=== PATIENT | male | born 1985 | race Caucasian/White ===

== ENCOUNTER 2018-01-09 23:41 | Emergency (ER) | payer OTHER, SELFPAY ==
[2018-01-09 23:58] VITALS: BP 138/78; PULSE 84; RESP 20; TEMP 37.4; O2SAT 97
--- NOTE | 2018-01-10 00:31 | DI.RAD.S_ITS ---
PROCEDURE: XR CHEST 2V INDICATIONS: cough/shortness of breath/fatigue TECHNIQUE: 2 views of the chest were acquired. COMPARISON: None. FINDINGS: Surgical changes and devices: None. Lungs and pleura: No pleural effusions or pneumothorax. No acute consolidation. There are mild bilateral scattered and retrocardiac groundglass opacities Mediastinum: Mediastinal contours are normal. Heart size is normal. Bones and chest wall: No suspicious bony abnormalities. Soft tissues appear unremarkable. IMPRESSION: No acute consolidation. Bilateral scattered mild groundglass opacities raising the possibility of low-grade atelectasis/aspiration, mild viral pneumonia, versus early pulmonary edema; recommend clinical correlation. Dictated by: Kashif Dickson M.D. on 01/10/2018 at 7:54 Approved by: Kashif Dickson M.D. on 01/10/2018 at 7:56
--- NOTE | 2018-01-10 01:38 | ED.SOB ---
HPI - SOB/Dyspnea General Chief Complaint: Shortness of Breath/Dyspnea Stated Complaint: THINKS FLU, COUGHING HEAD PRESSURE, DRY HEAVES Source: patient Mode of arrival: ambulatory Limitations: no limitations History of Present Illness Patient presents to the emergency department this evening with a chief complaint of cough for the past few days that feels unrelenting. He denies any runny nose but complains of bit of a sore throat. He has had no fever or chills. He does admit to some dry heaves Related Data Previous Rx's Medication Instructions Recorded doxycycline monohydrate 100 mg PO BID 10 Days #20 cap 01/10/18 ondansetron [Zofran ODT] 4 mg PO Q6H PRN #14 tab 01/10/18 Allergies Allergy/AdvReac Type Severity Reaction Status Date / Time shellfish derived Allergy Verified 01/10/18 00:01 Review of Systems Review of Systems All systems reviewed & are unremarkable except as noted in HPI and below Constitutional Denies chills, Denies fever(s), Denies lethargy and Denies weakness Eyes Denies change in vision, Denies eye discharge, Denies irritation and Denies loss of vision ENT Ears, Nose, Mouth, and Throat: Denies change in voice, Denies neck pain and Denies sore throat Cardiovascular Denies chest pain, Denies irregular heart rhythm, Denies lightheadedness, Denies palpitations, Denies dyspnea, Denies dyspnea on exertion and Denies orthopnea Respiratory Reports cough, Denies dyspnea, Denies dyspnea on exertion and Denies wheezing Gastrointestinal Gastrointestinal: Denies abdominal pain, Denies change in bowel habits, Denies diarrhea, Reports nausea and Denies vomiting Genitourinary Denies hematuria, Denies flank pain, Denies urinary incontinence and Denies urinary urgency Musculoskeletal Denies neck pain Integumentary/Breasts Denies pruritus, Denies erythema, Denies rash and Denies wounds Neurologic Denies confusion, Denies loss of vision and Denies weakness Psychiatric Denies anxiety, Denies confusion, Denies depression, Denies homicidal ideation and Denies suicidal ideation Endocrine Denies palpitations Hematologic/Lymphatic Denies easy bruising Allergic/Immunologic Denies wheezing Exam Initial Vital Signs Initial Vital Signs: Vital Signs Temperature 99.4 F 01/09/18 23:58 Pulse Rate 84 01/09/18 23:58 Respiratory Rate 20 01/09/18 23:58 Blood Pressure 138/78 H 01/09/18 23:58 Pulse Oximetry 97 01/09/18 23:58 Const General: cooperative and well developed Nutritional Appearance: well nourished Orientation: alert, awake, oriented x3 and not confused [facility] Head: normocephalic and atraumatic Ears: external ears normal and TM's normal bilaterally Nose: external nose normal and No nasal discharge Face and sinus: sinuses nontender, face symmetric, no sinus tenderness and No dry mucous membranes Mouth: oral mucosae normal and moist mucous membranes Teeth and gingiva: dentition normal Throat: tonsils normal and uvula midline Eyes General: appearance normal, both eyes and all related structures Eyelids: eyelids normal Conjunctivae: conjunctivae normal Sclera: sclerae normal Pupils: PERRL EOM: EOM intact bilaterally Neck Neck: normal visual inspection, trachea midline, No lymphadenopathy, No midline deformity and No JVD Lymphatic: No lymphedema Chest Chest: normal inspection of the chest Resp Effort & Inspection: normal respiratory effort, able to speak in complete sentences, no respiratory distress and no use of accessory muscles Auscultation: clear to auscultation bilaterally, no rales, no rhonchi and no wheezes Cardio Rate: regular rate Rhythm: regular rhythm Heart Sounds: no click, no gallops, no murmurs and no rubs Pulses: normal peripheral pulses GI Inspection: non-distended Palpation: soft, no hepatosplenomegaly, No guarding, No pulsatile mass and No tender Auscultation: normal bowel sounds Back/Spine/Pelvis Back: No CVA tenderness Cervical Spine: cervical ROM normal and No pain with cervical ROM Thoracic/Lumbar Spine: thoracic and lumbar spine normal to inspection Skin General: no rashes or lesions noted, No jaundice and No petechiae Neuro General: alert, oriented x3, gait normal and no focal motor deficits Speech: speech normal Extrem General: full ROM, no clubbing, cyanosis or edema, no pedal edema and no calf tenderness Psych Appearance: well kempt Mental Status: mental status grossly normal Attitude: cooperative Thought Content: normal and suicidality Judgment: judgment good Course Orders Ordered: ED Orders 01/10/18 00:31 Chest [XR chest 2V] Stat Discontinued Medications Doxycycline Hyclate (Vibramycin) 100 mg PO NOW ONE Stop: 01/10/18 01:27 Last Admin: 01/10/18 01:39 Dose: 100 mg Ondansetron HCl (Zofran Odt Prepack) 1 bottle MISC SEEINSTR ONE Stop: 01/10/18 01:27 Last Admin: 01/10/18 01:39 Dose: 1 bottle Vital Signs - 8 hr 01/09/18 23:58 01/10/18 01:56 Temperature 99.4 F 99.7 F H Pulse Rate 84 71 Respiratory Rate 20 18 Blood Pressure 138/78 H 120/48 L Pulse Oximetry 97 98 MDM - SOB/Dyspnea Differential Diagnosis Likely acute exacerbation of chronic obstructive airways disease, congestive heart failure, community acquired pneumonia, asthma with exacerbation and pulmonary embolism Imaging Data Chest x-ray: Attestation: I personally reviewed and interpreted this imaging study as follows: Radiologist's impression: No acute process Discharge Plan Departure Patient Disposition: Home, Self-Care Clinical Impression: Atypical pneumonia, Vomiting Discharge Date/Time: 01/10/18 01:57 Interventions: ED Discharge Assessment Last Done: 01/10/18 01:56 Instructions: DI for Atypical Pneumonia Activity Restrictions/Additional Instructions: There is no evidence of an emergent or life threatening illness at this time, but follow up with your doctor in 1-2 days is recommended nonetheless to continue to rule out serious underlying causes of your symptoms. Please call the office for an appointment. Please return to the Emergency Department for any worsening or persistent symptoms. Please take medications as directed. Prescriptions: New doxycycline monohydrate 100 mg capsule 100 mg PO BID 10 Days Qty: 20 RF: 0 ondansetron [Zofran ODT] 4 mg tablet,disintegrating 4 mg PO Q6H PRN (Reason: nausea and vomiting) Qty: 14 RF: 0 Referrals: Angela Mojica MD [Primary Care Provider] -
[2018-01-10] MEDS: ONDANSETRON 4 MG ODT PREPACK 1 BOTTLE MISC (01:39)
[2018-01-10] MEDS: DOXYCYCLINE HYCLATE 100 MG TABLET PO (01:39)
[2018-01-10 01:56] VITALS: BP 120/48; PULSE 71; RESP 18; TEMP 37.6; O2SAT 98
== END 2018-01-10 01:57 | disposition home or self-care (01) ==
PROVIDERS: Emergency Provider Emergency Medicine; PCP Family Medicine
DX: J18.9 Pneumonia, unspecified organism (principal); R11.10 Vomiting, unspecified
CPT/HCPCS: 71046; 99282; 99283

== ENCOUNTER 2019-04-30 18:10 | Emergency (ER) | payer OTHER, SELFPAY ==
[2019-04-30 18:15] VITALS: BP 154/102; PULSE 93; RESP 18; TEMP 37.1; O2SAT 97; BMI 25.7
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
[2019-04-30 20:10] LABS: HEMOLYSIS < 15 (0-50); Sodium 140 mmol/L (137-145)
[2019-04-30 20:12] LABS: Alanine Aminotransferase 19 IU/L (21-72); Albumin 5.2 g/dL (3.5-5.0); Albumin Globulin Ratio 1.6 (1.0-2.8); Alkaline Phosphatase 54 U/L (38-126); Aspartate Aminotransferase 23 IU/L (17-59); Bilirubin Total 1.1 mg/dL (0.2-1.3); Blood Urea Nitrogen 16 mg/dL (9-20); Calcium 9.9 mg/dL (8.4-10.2); Carbon Dioxide 23 mmol/L (22-32); Chloride 102 mmol/L (98-107); Estimated Glomerular Filt Rate > 60.0 mL/min (>60); Ethanol (ETOH) < 10 mg/dL; Globulin 3.2 g/dL (1.7-4.1); Glucose 90 mg/dL (70-100); Total Protein 8.4 g/dL (6.3-8.2)
[2019-04-30 20:13] LABS: Add Manual Diff / Slide Review NO; Basophils Absolute Auto 0 /uL (0-100); Basophils Percent Auto 0.4 % (0-2); Eosinophils Absolute Auto 0 /uL (0-450); Eosinophils Percent Auto 0.2 % (2-4); Hematocrit 43.7 % (41-53); Hemoglobin 15.1 g/dL (13.5-17.5); Lymphocytes Absolute Auto 2400 /uL (1100-4500); Lymphocytes Percent Auto 20.2 % (25-40); Mean Corpuscular HGB Conc 34.7 % (30-36); Mean Corpuscular Hemoglobin 29.4 PG (26-34); Mean Corpuscular Volume 84.8 fL (80-100); Monocytes Absolute Auto 700 /uL (0-900); Neutrophils Absolute Auto 8800 /uL (1500-7000); Neutrophils Percent Auto 73.2 % (50-75); Platelet Count 250 X10^3/uL (150-400); Red Blood Cell Count 5.15 X10^6/uL (4.5-5.9); Red Cell Distribution Width 13.3 % (11.6-14.8)
--- NOTE | 2019-04-30 20:14 | PC.NURSE ---
Pt given urinal and asked for a urine sample. Pt states he does not feel safe at home but assures me that he will not hurt himself or anybody else while he is in the ED. Pt calm and cooperative at this time.
[2019-04-30 20:32] LABS: Urine Amphetamines Negative (Negative); Urine Barbiturates Negative (Negative); Urine Benzodiazepines Negative (Negative); Urine Cocaine Negative (Negative); Urine MDMA Negative (Negative); Urine Methadone Negative (Negative); Urine Methamphetamines Negative (Negative); Urine Morphine/Opi cutoff 2000 Negative (Negative); Urine Oxycodone Negative (Negative); Urine Phencyclidine Negative (Negative); Urine Tetrahydrocannabinol Positive (Negative); Urine Tricyclic Antidepressant Negative (Negative)
[2019-04-30 20:43] LABS: Thyroid Stimulating Hormone 1.32 uIU/mL (0.47-4.68)
[2019-04-30 20:49] LABS: Bacteria Urine None Seen; RBC Urine 0-1/HPF (0-5/HPF); WBC Urine 0-1/HPF (0-5/HPF)
[2019-04-30 20:50] LABS: Culture Indicated Urine Cult Not Indicated
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
--- NOTE | 2019-04-30 22:43 | PC.NURSE ---
Pt lying down, wants to sleep. Lights dimmed for comfort.
--- NOTE | 2019-05-01 01:45 | PC.NURSE ---
Pt sitting on stretcher in room speaking with Dr. Blakely. Pt calm and cooperative.
--- NOTE | 2019-05-01 02:37 | PC.NURSE ---
Pt given coffee requested and offered snacks, pt given crackers, cheese, pudding and yogurt.
--- NOTE | 2019-05-01 03:41 | ED_ITS ---
HPI - Psych <Jesenia Blakely MD - Last Filed: 05/03/19 19:14> General Chief Complaint: Psychiatric Symptoms Stated Complaint: SUICIDAL Time Seen by Provider: 04/30/19 18:52 Source: patient Mode of arrival: ambulatory Limitations: no limitations History of Present Illness HPI Narrative: Patient comes emergency department complaining of depression, anxiety, and suicidal ideation. Patient states that he feels as though his life is just falling apart over the last several years, and he no longer has any social supports except his mother. 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 Patient states that he is scared to commit suicide, otherwise he would do it. He states that he has held a gun to his head before, and that he does have a safe with guns in it at home. Patient is not currently on any antidepressants or anxiolytics. He states that he has considered getting a fresh start, but does not have any money to do so. He denies any physical complaints. No other complaints at this time. Related Data Home Medications Medication Instructions Recorded Confirmed No Known Home Medications 05/01/19 05/01/19 Allergies Allergy/AdvReac Type Severity Reaction Status Date / Time shellfish derived Allergy Verified 01/10/18 00:01 Review of Systems <Jesenia Blakely MD - Last Filed: 05/03/19 19:14> Review of Systems ROS Unobtainable: All systems reviewed & are unremarkable except as noted in HPI and below Constitutional Constitutional: Denies chills, Denies fatigue, Denies fever(s), Denies frequent falls, Denies lethargy and Denies weakness Eyes Eyes: Denies change in vision, Denies eye discharge, Denies irritation and Denies loss of vision ENT Ears, Nose, Mouth, and Throat: Denies change in voice, Denies dizziness, Denies neck pain, Denies sore throat and Denies throat swelling Cardiovascular Cardiovascular: Denies chest pain, Denies irregular heart rhythm, Denies lightheadedness, Denies palpitations, Denies dyspnea, Denies dyspnea on exertion and Denies orthopnea Respiratory Respiratory: Denies cough, Denies dyspnea, Denies dyspnea on exertion and Denies wheezing Gastrointestinal Gastrointestinal: Denies abdominal pain, Denies change in bowel habits, Denies diarrhea, Denies nausea and Denies vomiting Genitourinary Genitourinary: Denies hematuria, Denies flank pain, Denies urinary incontinence and Denies urinary urgency Musculoskeletal Musculoskeletal: Denies back pain, Denies muscle weakness, Denies neck pain, Denies numbness and Denies tingling Integumentary/Breasts Skin/Breast: Denies pruritus, Denies erythema, Denies rash and Denies wounds Neurologic Neurologic: Denies behavioral changes, Denies confusion, Denies dizziness, Denies frequent falls, Denies loss of vision, Denies numbness, Denies tingling and Denies weakness Psychiatric Psychiatric: Reports anxiety, Denies behavioral changes, Denies confusion, Reports depression, Denies homicidal ideation and Reports suicidal ideation Endocrine Endocrine: Denies fatigue, Denies flushing and Denies palpitations Hematologic/Lymphatic Hematologic/Lymphatic: Denies easy bruising Allergic/Immunologic Allergic/Immunologic: Denies urticaria, Denies throat swelling and Denies wheezing PFSH <Jesenia Blakely MD - Last Filed: 05/03/19 19:14> Medical History Depression (Acute) Suicidal ideation (Acute) Surgical History No pertinent past surgical history (Acute) Social History Smoking Status: Former smoker alcohol intake: former substance use type: marijuana Exam <Jesenia Blakely MD - Last Filed: 05/03/19 19:14> Initial Vital Signs Initial Vital Signs: Vital Signs Temperature 98.7 F 04/30/19 18:15 Pulse Rate 93 H 04/30/19 18:15 Respiratory Rate 18 04/30/19 18:15 Blood Pressure 154/102 H 04/30/19 18:15 Pulse Oximetry 97 04/30/19 18:15 Const General: cooperative and well developed Nutritional Appearance: well nourished Orientation: alert, awake, oriented x3 and not confused [facility] Head: normocephalic and atraumatic Nose: external nose normal and No nasal discharge Face and sinus: face symmetric and No dry mucous membranes Mouth: oral mucosae normal and moist mucous membranes Teeth and gingiva: dentition normal Eyes General: appearance normal, both eyes and all related structures Eyelids: eyelids normal Conjunctivae: conjunctivae normal Sclera: sclerae normal Pupils: PERRL EOM: EOM intact bilaterally Neck Neck: normal visual inspection, trachea midline, No lymphadenopathy, No midline deformity and No JVD Lymphatic: No lymphedema Chest Chest: normal inspection of the chest Resp Effort & Inspection: normal respiratory effort, able to speak in complete sentences, no respiratory distress and no use of accessory muscles Cardio Pulses: normal peripheral pulses Back/Spine/Pelvis Back: normal to inspection Skin General: no rashes or lesions noted, No jaundice and No petechiae Neuro General: alert, oriented x3, gait normal and no focal motor deficits Speech: speech normal Extrem General: full ROM, no clubbing, cyanosis or edema, no pedal edema and no calf tenderness Psych Appearance: well kempt Mental Status: mental status grossly normal Attitude: cooperative Thought Content: normal and suicidality Judgment: judgment good <Yesi Sutton DO - Last Filed: 05/01/19 18:55> Initial Vital Signs Initial Vital Signs: Vital Signs Temperature 98.7 F 04/30/19 18:15 Pulse Rate 93 H 04/30/19 18:15 Respiratory Rate 18 04/30/19 18:15 Blood Pressure 154/102 H 04/30/19 18:15 Pulse Oximetry 97 04/30/19 18:15 Course <Jesenia Blakely MD - Last Filed: 05/03/19 19:14> Course Course Narrative: Patient was worked up with clearance labs in the emergency department. He did not wish to go back home, and was afraid he might take his life, so I did keep him here to await social work evaluation. Patient is signed out to Dr. Sutton at change of shift, pending social work evaluation and disposition. Orders Ordered: ED Orders 05/01/19 06:08 Consult to Senior Quality Control Inspector Stat Vital Signs Vital signs: Vital Signs - 8 hr 05/01/19 11:36 05/01/19 14:48 Temperature 99.0 F Pulse Rate 70 58 L Respiratory Rate 16 17 Blood Pressure [Right Arm] 124/66 128/83 Pulse Oximetry 99 100 <Yesi Sutton DO - Last Filed: 05/01/19 18:55> Orders Ordered: ED Orders 05/01/19 06:08 Consult to Senior Quality Control Inspector Stat Vital Signs Vital signs: Vital Signs - 8 hr 05/01/19 11:36 05/01/19 14:48 Temperature 99.0 F Pulse Rate 70 58 L Respiratory Rate 16 17 Blood Pressure [Right Arm] 124/66 128/83 Pulse Oximetry 99 100 [facility] - Psych <Jesenia Blakely MD - Last Filed: 05/03/19 19:14> Lab Data Result diagrams: 04/30/19 19:36 04/30/19 19:36 Labs: Lab Results 04/30/19 04/30/19 04/30/19 Range/Units 19:36 19:36 19:36 WBC 12.0 H (4.5-11.0) X10^3/uL RBC 5.15 (4.5-5.9) X10^6/uL Hgb 15.1 (13.5-17.5) g/dL Hct 43.7 (41-53) % MCV 84.8 (80-100) fL MCH 29.4 (26-34) PG MCHC 34.7 (30-36) % RDW 13.3 (11.6-14.8) % Plt Count 250 (150-400) X10^3/uL Neut % (Auto) 73.2 (50-75) % Lymph % (Auto) 20.2 L (25-40) % [place] % (Auto) 6.0 (3-14) % Eos % (Auto) 0.2 L (2-4) % Baso % (Auto) 0.4 (0-2) % Neut # (Auto) 8800 H (3236-6027) /uL Lymph # (Auto) 2400 (5181-4277) /uL [place] # (Auto) 700 (0-900) /uL Eos # (Auto) 0 (0-450) /uL Baso # (Auto) 0 (0-100) /uL Sodium 140 (137-145) mmol/L Potassium 4.0 (3.4-5.1) mmol/L Chloride 102 (98-107) mmol/L Carbon Dioxide 23 (22-32) mmol/L BUN 16 (9-20) mg/dL Creatinine 1.00 (0.66-1.25) mg/dL Estimated GFR > 60.0 (>60) mL/min BUN/Creatinine Ratio 16.0 (6-22) Glucose 90 (70-100) mg/dL Calcium 9.9 (8.4-10.2) mg/dL Total Bilirubin 1.1 (0.2-1.3) mg/dL AST 23 (17-59) IU/L ALT 19 L (21-72) IU/L Alkaline Phosphatase 54 (38-126) U/L Total Protein 8.4 H (6.3-8.2) g/dL Albumin 5.2 H (3.5-5.0) g/dL Globulin 3.2 (1.7-4.1) g/dL Albumin/Globulin Ratio 1.6 (1.0-2.8) TSH 1.32 (0.47-4.68) uIU/mL Urine RBC (0-5/HPF) Urine WBC (0-5/HPF) Urine Bacteria (None) Ur Culture Indicated? Urine Opiates Screen (Negative) Ur Oxycodone Screen (Negative) Urine Methadone Screen (Negative) Ur Barbiturates Screen (Negative) U Tricyclic Antidepress (Negative) Ur Phencyclidine Scrn (Negative) Ur Amphetamines Screen (Negative) U Methamphetamines Scrn (Negative) Ur MDMA Scrn (Ecstasy) (Negative) U Benzodiazepines Scrn (Negative) Urine Cocaine Screen (Negative) U Marijuana (THC) Screen (Negative) Ethyl Alcohol < 10 ( - 10) mg/dL 04/30/19 04/30/19 Range/Units 20:24 20:25 WBC (4.5-11.0) X10^3/uL RBC (4.5-5.9) X10^6/uL Hgb (13.5-17.5) g/dL Hct (41-53) % MCV (80-100) fL MCH (26-34) PG MCHC (30-36) % RDW (11.6-14.8) % Plt Count (150-400) X10^3/uL Neut % (Auto) (50-75) % Lymph % (Auto) (25-40) % [place] % (Auto) (3-14) % Eos % (Auto) (2-4) % Baso % (Auto) (0-2) % Neut # (Auto) (8629-9912) /uL Lymph # (Auto) (3948-5371) /uL [place] # (Auto) (0-900) /uL Eos # (Auto) (0-450) /uL Baso # (Auto) (0-100) /uL Sodium (137-145) mmol/L Potassium (3.4-5.1) mmol/L Chloride (98-107) mmol/L Carbon Dioxide (22-32) mmol/L BUN (9-20) mg/dL Creatinine (0.66-1.25) mg/dL Estimated GFR (>60) mL/min BUN/Creatinine Ratio (6-22) Glucose (70-100) mg/dL Calcium (8.4-10.2) mg/dL Total Bilirubin (0.2-1.3) mg/dL AST (17-59) IU/L ALT (21-72) IU/L Alkaline Phosphatase (38-126) U/L Total Protein (6.3-8.2) g/dL Albumin (3.5-5.0) g/dL Globulin (1.7-4.1) g/dL Albumin/Globulin Ratio (1.0-2.8) TSH (0.47-4.68) uIU/mL Urine RBC 0-1/hpf (0-5/HPF) Urine WBC 0-1/hpf (0-5/HPF) Urine Bacteria None seen (None) Ur Culture Indicated? Cult not indicated Urine Opiates Screen Negative (Negative) Ur Oxycodone Screen Negative (Negative) Urine Methadone Screen Negative (Negative) Ur Barbiturates Screen Negative (Negative) U Tricyclic Antidepress Negative (Negative) Ur Phencyclidine Scrn Negative (Negative) Ur Amphetamines Screen Negative (Negative) U Methamphetamines Scrn Negative (Negative) Ur MDMA Scrn (Ecstasy) Negative (Negative) U Benzodiazepines Scrn Negative (Negative) Urine Cocaine Screen Negative (Negative) U Marijuana (THC) Screen Positive H (Negative) Ethyl Alcohol ( - 10) mg/dL Urine Dip Bedside Urine Glucose Negative Bedside Urine Bilirubin - Negative Bedside Urine Ketone +++ 80 Urine Specific [place] 1.020 Bedside Urine Occult Blood - Negative Bedside Urine pH 6.0 Bedside Urine Protein +/- 15 Bedside Urine Urobilinogen +/- 1mg Bedside Urine Nitrite - Negative Bedside Urine Leukocytes - Negative Esterase <Yesi Sutton DO - Last Filed: 05/01/19 18:55> Lab Data Attestation: I reviewed the patient's lab results. Labs: Lab Results 04/30/19 04/30/19 04/30/19 Range/Units 19:36 19:36 19:36 WBC 12.0 H (4.5-11.0) X10^3/uL RBC 5.15 (4.5-5.9) X10^6/uL Hgb 15.1 (13.5-17.5) g/dL Hct 43.7 (41-53) % MCV 84.8 (80-100) fL MCH 29.4 (26-34) PG MCHC 34.7 (30-36) % RDW 13.3 (11.6-14.8) % Plt Count 250 (150-400) X10^3/uL Neut % (Auto) 73.2 (50-75) % Lymph % (Auto) 20.2 L (25-40) % [place] % (Auto) 6.0 (3-14) % Eos % (Auto) 0.2 L (2-4) % Baso % (Auto) 0.4 (0-2) % Neut # (Auto) 8800 H (4870-2196) /uL Lymph # (Auto) 2400 (9840-4542) /uL [place] # (Auto) 700 (0-900) /uL Eos # (Auto) 0 (0-450) /uL Baso # (Auto) 0 (0-100) /uL Sodium 140 (137-145) mmol/L Potassium 4.0 (3.4-5.1) mmol/L Chloride 102 (98-107) mmol/L Carbon Dioxide 23 (22-32) mmol/L BUN 16 (9-20) mg/dL Creatinine 1.00 (0.66-1.25) mg/dL Estimated GFR > 60.0 (>60) mL/min BUN/Creatinine Ratio 16.0 (6-22) Glucose 90 (70-100) mg/dL Calcium 9.9 (8.4-10.2) mg/dL Total Bilirubin 1.1 (0.2-1.3) mg/dL AST 23 (17-59) IU/L ALT 19 L (21-72) IU/L Alkaline Phosphatase 54 (38-126) U/L Total Protein 8.4 H (6.3-8.2) g/dL Albumin 5.2 H (3.5-5.0) g/dL Globulin 3.2 (1.7-4.1) g/dL Albumin/Globulin Ratio 1.6 (1.0-2.8) TSH 1.32 (0.47-4.68) uIU/mL Urine RBC (0-5/HPF) Urine WBC (0-5/HPF) Urine Bacteria (None) Ur Culture Indicated? Urine Opiates Screen (Negative) Ur Oxycodone Screen (Negative) Urine Methadone Screen (Negative) Ur Barbiturates Screen (Negative) U Tricyclic Antidepress (Negative) Ur Phencyclidine Scrn (Negative) Ur Amphetamines Screen (Negative) U Methamphetamines Scrn (Negative) Ur MDMA Scrn (Ecstasy) (Negative) U Benzodiazepines Scrn (Negative) Urine Cocaine Screen (Negative) U Marijuana (THC) Screen (Negative) Ethyl Alcohol < 10 ( - 10) mg/dL 04/30/19 04/30/19 Range/Units 20:24 20:25 WBC (4.5-11.0) X10^3/uL RBC (4.5-5.9) X10^6/uL Hgb (13.5-17.5) g/dL Hct (41-53) % MCV (80-100) fL MCH (26-34) PG MCHC (30-36) % RDW (11.6-14.8) % Plt Count (150-400) X10^3/uL Neut % (Auto) (50-75) % Lymph % (Auto) (25-40) % [place] % (Auto) (3-14) % Eos % (Auto) (2-4) % Baso % (Auto) (0-2) % Neut # (Auto) (8193-7471) /uL Lymph # (Auto) (0229-6159) /uL [place] # (Auto) (0-900) /uL Eos # (Auto) (0-450) /uL Baso # (Auto) (0-100) /uL Sodium (137-145) mmol/L Potassium (3.4-5.1) mmol/L Chloride (98-107) mmol/L Carbon Dioxide (22-32) mmol/L BUN (9-20) mg/dL Creatinine (0.66-1.25) mg/dL Estimated GFR (>60) mL/min BUN/Creatinine Ratio (6-22) Glucose (70-100) mg/dL Calcium (8.4-10.2) mg/dL Total Bilirubin (0.2-1.3) mg/dL AST (17-59) IU/L ALT (21-72) IU/L Alkaline Phosphatase (38-126) U/L Total Protein (6.3-8.2) g/dL Albumin (3.5-5.0) g/dL Globulin (1.7-4.1) g/dL Albumin/Globulin Ratio (1.0-2.8) TSH (0.47-4.68) uIU/mL Urine RBC 0-1/hpf (0-5/HPF) Urine WBC 0-1/hpf (0-5/HPF) Urine Bacteria None seen (None) Ur Culture Indicated? Cult not indicated Urine Opiates Screen Negative (Negative) Ur Oxycodone Screen Negative (Negative) Urine Methadone Screen Negative (Negative) Ur Barbiturates Screen Negative (Negative) U Tricyclic Antidepress Negative (Negative) Ur Phencyclidine Scrn Negative (Negative) Ur Amphetamines Screen Negative (Negative) U Methamphetamines Scrn Negative (Negative) Ur MDMA Scrn (Ecstasy) Negative (Negative) U Benzodiazepines Scrn Negative (Negative) Urine Cocaine Screen Negative (Negative) U Marijuana (THC) Screen Positive H (Negative) Ethyl Alcohol ( - 10) mg/dL Urine Dip Bedside Urine Glucose Negative Bedside Urine Bilirubin - Negative Bedside Urine Ketone +++ 80 Urine Specific [place] 1.020 Bedside Urine Occult Blood - Negative Bedside Urine pH 6.0 Bedside Urine Protein +/- 15 Bedside Urine Urobilinogen +/- 1mg Bedside Urine Nitrite - Negative Bedside Urine Leukocytes - Negative Esterase MDM Narrative Medical decision making narrative: Patient signed out to myself by Dr. rosario, patient states that he does not feel quite as ?hysterical? as yesterday but that he still having significant suicidal thoughts and does not feel safe returning to home. He does have firearms in his home and he states that that would be his plan to kill himself. He states that he has always been sort of scared to actually do it but has put the gun to his head in the past. He does not have good social support at this time and is not speaking terms with his brother or close friends. He does have contact with his mother regularly but she always tells him ?that she does not want know what to do.? Patient is interested in voluntary placement at this time. He states that he has been at a facility that was for 's in the past and had some interest in returning to that location. He is comfortable to plan for discussion with social work and to continue looking for placement. [facility] accepting [facility]. Awaiting transportation. Discharge Plan Departure Patient Disposition: Xfer Psychiatric Hosp Clinical Impression: Suicidal ideation Discharge Date/Time: 05/01/19 15:24 Referrals: Angela Mojica MD [Primary Care Provider] -
[2019-05-01 07:06] VITALS: BP 124/73; PULSE 45; RESP 16; TEMP 36.3; O2SAT 97
--- NOTE | 2019-05-01 09:41 | PC.NURSE ---
Pt resting intermittently on the bed. Ambulating to bathroom. Given clean disposable scrubs and socks to wear. CM
--- NOTE | 2019-05-01 10:39 | PC.NURSE ---
Addendum entered by Eunice Roper CNA 05/01/19 10:45: Phone placed back into patient belonging bag at nurse's station. CM Addendum entered by Eunice Roper CNA 05/01/19 10:43: Patient's phone given to patient from patient belonging bag. HANSEL Original Note: Patient meeting with [facility]. HANSEL
[2019-05-01 11:36] VITALS: BP 124/66; PULSE 70; RESP 16; O2SAT 99
--- NOTE | 2019-05-01 11:40 | CM.SWNOTE ---
CUSTOMER DEVELOPMENT REPRESENTATIVE Note: Received request from ED staff to follow up with inpatient psychiatric placement for this 33yr old male. Met with patient this AM and he continues to request inpatient psychiatric placement for SI. Previous CUSTOMER DEVELOPMENT REPRESENTATIVE notes indicate that [facility] bed might be available today. CUSTOMER DEVELOPMENT REPRESENTATIVE placed call to Yord[facility] at [facility] ph# [phone] he requested clinical be faxed to [phone]. Information reviewed by [facility] and they will accept. Accepting MD is Dr. Marin. CUSTOMER DEVELOPMENT REPRESENTATIVE spoke with Dr. Marin and she confirms acceptance and requested to speak with patient via the telephone. Consent will be faxed to [facility] for patient to sign and will need to be faxed once signature obtained. Per Dr. Marin, [facility] will coordinate transport and call ED with fruit picker time. RN and MD updated. Patient continues to be aware and agreeable. Contact at [facility] is [facility] ph# [phone]. P: Inpatient psychiatric treatment at [facility]. JAVIER Heath
[2019-05-01 14:48] VITALS: BP 128/83; PULSE 58; RESP 17; TEMP 37.2; O2SAT 100
--- NOTE | 2019-05-01 14:48 | PC.NURSE ---
report called to BART Soria at [facility]
== END 2019-05-01 15:24 ==
PROVIDERS: Emergency Medicine; Nurse Practitioner; Emergency Provider Emergency Medicine; PCP Family Medicine
DX: R45.851 Suicidal ideations (principal)
CPT/HCPCS: 36415; 80053; 80305; 80320; 81003; 81015; 84443; 85025; 99285

== ENCOUNTER 2019-06-21 17:37 | Emergency (ER) | payer OTHER, SELFPAY ==
[2019-06-21 17:48] VITALS: BP 175/81; PULSE 75; RESP 20; TEMP 36.9; O2SAT 98; BMI 27.1
--- NOTE | 2019-06-21 18:14 | PC.NURSE ---
pt reports, at 430pm today, developed severe anxiety and panic attact, called the HI Hotline, cried and called a friend, calming down now, reports he has been with Mental Health treatment for one month, taking Venlafaxine and Hydroxyzine. Has [facility] appointment tomorrow at 10am. denies SI,HI, overdose, Alcohol or injuries. 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 admit chewing tobacco. at this time, with good eye contact, cooperative with care, urine requested verbal understanding.
--- NOTE | 2019-06-21 18:22 | ED_ITS ---
HPI - Anxiety General Chief Complaint: Anxiety Stated Complaint: MENTAL HEALTH ISSUES Time Seen by Provider: 06/21/19 18:21 Source: patient Mode of arrival: Ambulatory Limitations: no limitations History of Present Illness HPI narrative: 34-year-old male nonsmoker with history of anxiety, depression, possibly PST and former alcohol abuse presents with his grandfather for evaluation of what seems like a panic attack. Patient's was just involved in an extensive and intense [facility]. He states he has no suicidal or homicidal ideation and is largely improved by his arrival. He was helping his grandfather with some chores when he started feeling very worked up, he called the crisis line at the [facility] was instructed to present here. He has an appointment tomorrow with his provider. He states he has been taking his medications as directed and has not missed any doses. He states he has no significant stressors that he can link to today's event. MD complaint: anxiety Onset (ago): hour(s) Symptoms: dyspnea and palpitations Severity: moderate Quality: improving Place: home History of similar episodes: Yes Provoking factors: none known Relieving factors: nothing Exacerbating factors: nothing Associated symptoms: denies other symptoms Related Data Home Medications Medication Instructions Recorded Confirmed No Known Home Medications 05/01/19 05/01/19 Allergies Allergy/AdvReac Type Severity Reaction Status Date / Time shellfish derived Allergy Verified 06/21/19 17:48 Review of Systems Constitutional Constitutional: Denies chills, Denies fatigue, Denies fever(s), Denies frequent falls, Denies lethargy and Denies weakness Eyes Eyes: Denies change in vision, Denies eye discharge, Denies irritation and Denies loss of vision ENT Ears, Nose, Mouth, and Throat: Denies change in voice, Denies dizziness, Denies neck pain, Denies sore throat and Denies throat swelling Cardiovascular Cardiovascular: Denies chest pain, Denies irregular heart rhythm, Denies l ightheadedness, Denies palpitations, Denies dyspnea, Denies dyspnea on exertion and Denies orthopnea Respiratory Respiratory: Denies cough, Denies dyspnea, Denies dyspnea on exertion and Denies wheezing Gastrointestinal Gastrointestinal: Denies abdominal pain, Denies change in bowel habits, Denies diarrhea, Denies nausea and Denies vomiting Genitourinary Genitourinary: Denies hematuria, Denies flank pain, Denies urinary incontinence and Denies urinary urgency Musculoskeletal Musculoskeletal: Denies back pain, Denies muscle weakness, Denies neck pain, Denies numbness and Denies tingling Integumentary/Breasts Skin/Breast: Denies pruritus, Denies erythema, Denies rash and Denies wounds Neurologic Neurologic: Denies behavioral changes, Denies confusion, Denies dizziness, Denies frequent falls, Denies loss of vision, Denies numbness, Denies tingling and Denies weakness Psychiatric Psychiatric: Reports anxiety, Denies behavioral changes, Denies confusion, Denies depression, Denies homicidal ideation and Denies suicidal ideation Endocrine Endocrine: Denies fatigue, Denies flushing and Denies palpitations Hematologic/Lymphatic Hematologic/Lymphatic: Denies easy bruising Allergic/Immunologic Allergic/Immunologic: Denies urticaria, Denies throat swelling and Denies wheezing Patient History Medical History Depression (Acute) Suicidal ideation (Acute) Surgical History No pertinent past surgical history (Acute) Social History Smoking Status: Former smoker alcohol intake: former substance use type: marijuana alcohol intake frequency: other Substance Use Type: marijuana Exam Narrative Exam Narrative: GENERAL: [34] year old patient appears stated age. Well- nourished, well-developed patient, in mild distress. HEAD: Atraumatic. Normocephalic. EYES: Pupils equal round and reactive. Extraocular motions intact. No scleral icterus. No injection or drainage. ENT: Nose without bleeding, purulent drainage. Throat without erythema, tonsillar hypertrophy or exudate. Airway patent. NECK: Trachea midline. Non tender CARDIOVASCULAR: Regular rate and rhythm without murmurs, gallops, or rubs. RESPIRATORY: Clear to auscultation. Breath sounds equal bilaterally. No wheezes, rales, or rhonchi. GASTROINTESTINAL: Abdomen soft, non-tender, nondistended. EXTREMITIES: No edema or joint tenderness. BACK: Nontender without deformity or crepitance. No flank tenderness. NEURO: AOx3. SKIN: No rash or erythema of visible areas Initial Vital Signs Initial Vital Signs: Vital Signs Temperature 98.4 F 06/21/19 17:48 Pulse Rate 75 06/21/19 17:48 Respiratory Rate 20 06/21/19 17:48 Blood Pressure 175/81 H 06/21/19 17:48 Pulse Oximetry 98 06/21/19 17:48 Course Course Course Narrative: patient doing quite well by his arrival. No suicidal or homicidal ideation. He admittedly feels much better. He as follow up tomorrow. He feels quite comfortable going home and has a friend coming to be with him. He has another friend whom will come take him to his appointment tomorrow. He has good insight to his illness. There is no need for labs at this point in time. He is given 2 doses of Ativan to get him through the night in case he gets anxious again. He has no access too firearms and does not want to hurt himself. He understands his diagnosis and is in full agreement with the plan. He understands that he may return immediately for any recurrence of symptoms. He has had his questions answered to his apparent satisfaction Orders Ordered: ED Orders 06/21/19 18:35 Urine Drug Screen, Rapid Stat Discontinued Medications Lorazepam (Ativan) 0.5 mg PO NOW ONE Stop: 06/21/19 19:35 Last Admin: 06/21/19 19:38 Dose: 0.5 mg Documented by: CAMMY Lorazepam (Ativan) 0.5 mg PO NOW ONE Stop: 06/21/19 19:37 Last Admin: 06/21/19 20:03 Dose: 0.5 mg Documented by: CAMMY Vital Signs Vital signs: Vital Signs - 8 hr 06/21/19 20:17 Pulse Rate 86 Respiratory Rate 14 Blood Pressure 137/81 Pulse Oximetry 98 MDM - Anxiety Lab Data Labs: Lab Results 06/21/19 Range/Units 18:35 U Morph 300 ng/mL cutoff Negative (Negative) Ur Oxycodone Screen Negative (Negative) Urine Methadone Screen Negative (Negative) Ur Barbiturates Screen Negative (Negative) U Tricyclic Antidepress Negative (Negative) Ur Phencyclidine Scrn Negative (Negative) Ur Amphetamines Screen Negative (Negative) U Methamphetamines Scrn Negative (Negative) Ur MDMA Scrn (Ecstasy) Negative (Negative) U Benzodiazepines Scrn Negative (Negative) Urine Cocaine Screen Negative (Negative) U Marijuana (THC) Screen Negative (Negative) Urine Dip Bedside Urine Glucose Negative Bedside Urine Bilirubin - Negative Bedside Urine Ketone - Negative Urine Specific [place] 1.010 Bedside Urine Occult Blood - Negative Bedside Urine pH 6.0 Bedside Urine Protein - Negative Bedside Urine Urobilinogen - Negative Bedside Urine Nitrite - Negative Bedside Urine Leukocytes - Negative Esterase Discharge Plan Departure Patient Disposition: Home Clinical Impression: Anxiety, Panic disorder Discharge Date/Time: 06/21/19 20:17 Instructions: Anxiety and Panic Attacks (Alternative Therapy), DI for Anxiety -- Adult Activity Restrictions/Additional Instructions: *You have been diagnosed with [anxiety with panic disorder] *What to do: *Take medications as directed *Follow up with your psychologist tomorrow. If you feel yourself escalating please immediately call the crisis line at or return to the Emergency Department. *Return to ER if you should have any new, worsening or concerning symptoms Prescriptions: No Action No Known Home Medications RF: 0 Referrals: [facility] [Outside] Angela Mojica MD [Primary Care Provider] -
[2019-06-21 18:47] LABS: UR Morphine/Opiate cutoff 300 Negative (Negative); Ur Creatinine Abnormal (Normal); Ur Specific Gravity Normal (Normal); Urine Amphetamines Negative (Negative); Urine Barbiturates Negative (Negative); Urine Benzodiazepines Negative (Negative); Urine Cocaine Negative (Negative); Urine MDMA Negative (Negative); Urine Methadone Negative (Negative); Urine Methamphetamines Negative (Negative); Urine Oxycodone Negative (Negative); Urine Phencyclidine Negative (Negative); Urine Tetrahydrocannabinol Negative (Negative); Urine Tricyclic Antidepressant Negative (Negative); Urine pH Normal (Normal)
[2019-06-21] MEDS: LORazepam 0.5 MG TABLET PO ×2 (19:38→20:03)
[2019-06-21 20:17] VITALS: BP 137/81; PULSE 86; RESP 14; O2SAT 98
== END 2019-06-21 20:17 | disposition home or self-care (01) ==
PROVIDERS: Emergency Provider Emergency Medicine; PCP Family Medicine
DX: F41.9 Anxiety disorder, unspecified (principal); F41.0 Panic disorder [episodic paroxysmal anxiety]
CPT/HCPCS: 80305; 81003; 99283

== ENCOUNTER 2021-04-01 13:40 | Emergency (ER) | payer OTHER, SELFPAY ==
[2021-04-01 13:49] VITALS: BP 129/86; PULSE 74; RESP 18; TEMP 36.7; O2SAT 99
[2021-04-01 15:17] LABS: Add Manual Diff / Slide Review NO; Basophils Absolute Auto 0 /uL (0-100); Basophils Percent Auto 0.3 % (0-2); Eosinophils Absolute Auto 0 /uL (0-450); Eosinophils Percent Auto 0.2 % (2-4); Hematocrit 44.3 % (41-53); Hemoglobin 14.9 g/dL (13.5-17.5); Lymphocytes Absolute Auto 1600 /uL (1100-4500); Lymphocytes Percent Auto 17.4 % (25-40); Mean Corpuscular HGB Conc 33.6 % (30-36); Mean Corpuscular Hemoglobin 29.6 PG (26-34); Mean Corpuscular Volume 88.1 fL (80-100); Monocytes Absolute Auto 800 /uL (0-900); Monocytes Percent Auto 8.8 % (3-14); Neutrophils Absolute Auto 6900 /uL (1500-7000); Neutrophils Percent Auto 73.3 % (50-75); Platelet Count 237 X10^3/uL (150-400); Red Blood Cell Count 5.03 X10^6/uL (4.5-5.9); Red Cell Distribution Width 13.4 % (11.6-14.8); White Blood Cell Count 9.4 X10^3/uL (4.5-11.0)
[2021-04-01 15:31] LABS: BUN Creatinine Ratio 17.2 (6-22); Blood Urea Nitrogen 16 mg/dL (9-20); Calcium 9.8 mg/dL (8.4-10.2); Carbon Dioxide 28 mmol/L (22-32); Chloride 100 mmol/L (98-107); Estimated Glomerular Filt Rate > 60.0 mL/min (>60); Glucose 98 mg/dL (70-100); HEMOLYSIS < 15 (0-50); Potassium 4.3 mmol/L (3.4-5.1); Sodium 137 mmol/L (137-145)
--- NOTE | 2021-04-01 16:05 | CM.SWNOTE ---
PRINTED CIRCUIT BOARD PCB DRAFTSMAN Assessment PRINTED CIRCUIT BOARD PCB DRAFTSMAN - Airport Manager Assessment PRINTED CIRCUIT BOARD PCB DRAFTSMAN/Airport Manager Assessment Time Spent with Patient Start date 04/01/21 Visit Start Time 15:10 End date 04/01/21 Visit End Time 15:45 Total time Care Management spent on 35 patient visit-in minutes Mental Health Screening Include Onset, Duration, Intensity Presenting Problem Patient presents to ED via EMS after recent panic attack breakdown at work Precipitating Event(s) Patient's friend recently from a seizure and patient had a seizure a few days later. Patient endorses current health issues that he is following up with PCP about . Patient endorses that he was off of his MH medication temporarily due to a lapse in refills and he is not certain if they are working. Patient Strengths Patient shows insight and is connected with services and resources Current Behavioral Health Provider(s) Patient sees psychologist and Include Facility, Provider, Ph. # psychiatrist through the [facility] regularly. Patient could not idenitify names of providers. Psych. 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 Patient has hx of PTSD, depression and anxiety. Patient endorses rx of Venafaxine and Lorazapam Patient endorses daily THC use when he is not working. Family Hx of Behavioral Abuse None reported Psychiatric Hospitalizations (date(s)/ Patient was admitted to location) [facility] in [place] in 08/09/18-08/24/18 (left AMA) Patient was admitted to [facility] on 05/01/19 Psychosocial information & Support Patient is 35 y/o male who Systems resides in [place], [place]. Patient identifies friends and coworkers as supports. 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 [place] and student at [employer] [place] Legal Concerns Legal Matters - Outstanding Issues None reported Mental Status Orientation (Person/Place/Time) A/Ox4 Stated Mood dealing with heavy stuff Affect (Congruent with Mood?) Euthymic, full range, congruent with mood Thought Content - Specify/Describe Patient does not endorse Obsessions, Delusions, Hallucinations thought content Thought Processes (Jatjkja-Ollhjjap-Djfe coherent Lxorctzd-Zhuvotrk-Fghtsgclvt- Fgjggiwwsqeaef-Caabmmu-Bkfmrfegynhu- Thought Blocking) Speech (Wxgajv-Wfxj-Riadmpg-Rapid-Soft- normal Loud-Pressured) Motor (Ltdodi-Qssjqtrdp-Vqss-Other) normal Insight (Wbjm-Knds-Uxxn/Limited) good/fair Judgement (Elku-Nvcl-Bagd/Limited) good/fair Impulse Control (Adequate-Impaired) adequate Memory (Psdtcdckz-Kzwrvi-Qpfzev, intact Impaired-Intact) Concentration (Intact-Impaired) intact Attention (Intact-Impaired) intact Behavior (Appropriate-Inappropriate) appropriate Risk Assessment Suicidal Ideation (Plan) No Homicidal Ideation (Plan) No Comment Patient denies HI and SI. Intervention Intervention PRINTED CIRCUIT BOARD PCB DRAFTSMAN enters room to meet with patient. Patient endorses significant life stresses due to health concerns and the recent loss of his friend who of a seizure. Patient endorses that he has a difficult job and his work life and personal life blend together at times. Patient endorses that he has utilized services at the [facility] and he is very connected in MH services with psychologist and psychiatrist. Patient endorses [facility] and was encouraged to come to the ED. Patient endorses that he has an appt with his psychiatrist on 04/03/21. Patient endorses due to his boss and coworkers concern for him he will have the next few weeks off for self care and to tend to his MH and wellbeing. PRINTED CIRCUIT BOARD PCB DRAFTSMAN discusses inpatient hospitalization at the [facility] and patient endorses he is not interested in that at this time. PRINTED CIRCUIT BOARD PCB DRAFTSMAN safety plans with patient to utilize [facility] crisis line when needed, utilize friends and supports, attend MH appts and return to ED if MH symptoms increase. It is the opinion of this PRINTED CIRCUIT BOARD PCB DRAFTSMAN that patient is safe to d/c to home. PRINTED CIRCUIT BOARD PCB DRAFTSMAN reviews the above with ED provider Oh Orellana PA-C who indicates agreement and understanding. Plan RA Plan Patient to d/c to home when medically clear, and to f/u with psychiatrist on 04/03/21. Patient to receive ride to home from friend. JAVIER Sanabria
[2021-04-01 16:10] LABS: Thyroid Stimulating Hormone 1.02 uIU/mL (0.47-4.68)
[2021-04-01 16:57] VITALS: BP 138/79; PULSE 71; RESP 18; O2SAT 100
--- NOTE | 2021-04-02 14:07 | ED.PSYCH ---
HPI - Psych <Oh Orellana PA-C - Last Filed: 04/02/21 14:11> General Chief Complaint: Psychiatric Symptoms Stated Complaint: mental health help Time Seen by Provider: 04/01/21 13:54 Source: patient Mode of arrival: EMS History of Present Illness HPI Narrative: Christoph presents today with chief complaint of increased anxiety and stress that has gotten worse over the last few weeks. He reports that he recently had his best friend and buried him 1 week ago. He has also had a number of different job transitions over the last few months that have been stressful. He is prior and also states that the current situation and [place] is causing him increased grief. [facility] currently [facility] month and does not think that this is enough help for him at this time. He denies any thoughts of suicide, harming himself, harming anybody else at this time but is just wanting to know what his options are. Related Data Home Medications Medication Instructions Recorded Confirmed No Known Home Medications 05/01/19 05/01/19 Allergies Allergy/AdvReac Type Severity Reaction Status Date / Time shellfish derived Allergy Verified 06/21/19 17:48 Review of Systems <Oh Orelalna PA-C - Last Filed: 04/02/21 14:11> Review of Systems Narrative: As per HPI Patient History <Oh Orellana PA-C - Last Filed: 04/02/21 14:11> Medical History (Updated 04/01/21 @ 16:50 by Oh Orellana PA-C) Depression Suicidal ideation Surgical History No pertinent past surgical history Social History Smoking Status: Former smoker alcohol intake: former substance use type: marijuana Smoking Status: Former smoker alcohol intake frequency: other Substance Use Type: marijuana Exam <Oh Orellana PA-C - Last Filed: 04/02/21 14:11> Narrative Exam Narrative: Exam Narrative: Const General: cooperative, healthy appearing, comfortable, no acute distress, well developed and well groomed Nutritional Appearance: average body habitus Orientation: alert and oriented x3 HENMT Head: normal to inspection and atraumatic Ears: hearing grossly normal bilaterally Nose: external nose normal and nares normal Face and sinus: normal facial exam Neck Neck: normal visual inspection and supple Resp Effort & Inspection: normal respiratory effort, able to speak in complete sentences, no audible wheezes, not labored, no nasal flaring and no respiratory distress Cardiac Regular rate and rhythm, no discernible murmurs, rubs or gallops. Neuro General: alert, oriented x3, gait normal, tone normal and moves all extremities Cognition: normal cognition Speech: speech normal Gait: normal gait Psych Appearance: grossly normal and well kempt Mental Status: mental status grossly normal Speech and Movement: speech and movement normal Mood: congruent mood Affect: normal affect Initial Vital Signs Initial Vital Signs: Vital Signs Temperature 98.0 F 04/01/21 13:49 Pulse Rate 74 04/01/21 13:49 Respiratory Rate 18 04/01/21 13:49 Blood Pressure 129/86 04/01/21 13:49 Pulse Oximetry 99 04/01/21 13:49 <Christoph Link DO - Last Filed: 04/02/21 14:12> Initial Vital Signs Initial Vital Signs: Vital Signs Temperature 98.0 F 04/01/21 13:49 Pulse Rate 74 04/01/21 13:49 Respiratory Rate 18 04/01/21 13:49 Blood Pressure 129/86 04/01/21 13:49 Pulse Oximetry 99 04/01/21 13:49 MDM - Psych <Oh Orellana PA-C - Last Filed: 04/02/21 14:11> Lab Data Result diagrams: 04/01/21 15:09 04/01/21 15:09 Labs: Lab Results 04/01/21 04/01/21 04/01/21 Range/Units 13:09 15:09 15:09 WBC 9.4 (4.5-11.0) X10^3/uL RBC 5.03 (4.5-5.9) X10^6/uL Hgb 14.9 (13.5-17.5) g/dL Hct 44.3 (41-53) % MCV 88.1 (80-100) fL MCH 29.6 (26-34) PG MCHC 33.6 (30-36) % RDW 13.4 (11.6-14.8) % Plt Count 237 (150-400) X10^3/uL Neut % (Auto) 73.3 (50-75) % Lymph % (Auto) 17.4 L (25-40) % [place] % (Auto) 8.8 (3-14) % Eos % (Auto) 0.2 L (2-4) % Baso % (Auto) 0.3 (0-2) % Neut # (Auto) 6900 (2006-7783) /uL Lymph # (Auto) 1600 (5445-0741) /uL [place] # (Auto) 800 (0-900) /uL Eos # (Auto) 0 (0-450) /uL Baso # (Auto) 0 (0-100) /uL Sodium 137 (137-145) mmol/L Potassium 4.3 (3.4-5.1) mmol/L Chloride 100 (98-107) mmol/L Carbon Dioxide 28 (22-32) mmol/L BUN 16 (9-20) mg/dL Creatinine 0.93 (0.66-1.25) mg/dL Estimated GFR > 60.0 (>60) mL/min BUN/Creatinine Ratio 17.2 (6-22) Glucose 98 (70-100) mg/dL Calcium 9.8 (8.4-10.2) mg/dL TSH 1.02 (0.47-4.68) uIU/mL MDM Narrative Medical decision making narrative: He has a normal workup at this time. He is not acutely suicidal nor homicidal. He has upcoming appointments with his counselor, psychiatrist, and regular doctor within the next week. Recommended that he consult with them for outpatient management. If his symptoms worsened in any way, he was recommended to come back to the emergency department immediately for evaluation of possible inpatient management. Patient verbalizes understanding and agrees to plan and has no further concerns at this time. Thank you A uhvie-hm-vdrk system was used with the dictation of this note. Please disregard any spelling or grammatical errors. <Christoph Link, DO - Last Filed: 04/02/21 14:12> Lab Data Labs: Lab Results 04/01/21 04/01/21 04/01/21 Range/Units 13:09 15:09 15:09 WBC 9.4 (4.5-11.0) X10^3/uL RBC 5.03 (4.5-5.9) X10^6/uL Hgb 14.9 (13.5-17.5) g/dL Hct 44.3 (41-53) % MCV 88.1 (80-100) fL MCH 29.6 (26-34) PG MCHC 33.6 (30-36) % RDW 13.4 (11.6-14.8) % Plt Count 237 (150-400) X10^3/uL Neut % (Auto) 73.3 (50-75) % Lymph % (Auto) 17.4 L (25-40) % [place] % (Auto) 8.8 (3-14) % Eos % (Auto) 0.2 L (2-4) % Baso % (Auto) 0.3 (0-2) % Neut # (Auto) 6900 (3237-5656) /uL Lymph # (Auto) 1600 (6220-2600) /uL [place] # (Auto) 800 (0-900) /uL Eos # (Auto) 0 (0-450) /uL Baso # (Auto) 0 (0-100) /uL Sodium 137 (137-145) mmol/L Potassium 4.3 (3.4-5.1) mmol/L Chloride 100 (98-107) mmol/L Carbon Dioxide 28 (22-32) mmol/L BUN 16 (9-20) mg/dL Creatinine 0.93 (0.66-1.25) mg/dL Estimated GFR > 60.0 (>60) mL/min BUN/Creatinine Ratio 17.2 (6-22) Glucose 98 (70-100) mg/dL Calcium 9.8 (8.4-10.2) mg/dL TSH 1.02 (0.47-4.68) uIU/mL Discharge Plan Departure Patient Disposition: Home Clinical Impression: Anxiety, Acute reaction to stress Activity Restrictions/Additional Instructions: It was very nice to meet you this afternoon. Please [facility] and [facility] for [facility]. If you experience any worsening symptoms do not hesitate to come back to the emergency department as we are happy to see you. I hope that you are able to make it through this and get the help that you need. Thank you Oh Orellana PAC Prescriptions: No Action No Known Home Medications RF: 0 Referrals: Angela Mojica MD [Primary Care Provider] - <Christoph Link DO - Last Filed: 04/02/21 14:12> Cosign ED Attending Cosignature Attestation: Dr Link Co-Sign Statement: I was available for consultation during this patient's emergency department visit. This chart is signed by myself for administrative purposes only. I did not have direct contact with this patient during this visit. They were seen independently by the APC.
== END 2021-04-01 16:57 | disposition home or self-care (01) ==
PROVIDERS: Emergency Provider Physician Assistant; PCP Family Medicine
DX: F41.9 Anxiety disorder, unspecified (principal); F43.9 Reaction to severe stress, unspecified
CPT/HCPCS: 36415; 80048; 84443; 85025; 99281; 99283

== ENCOUNTER 2021-05-30 20:33 | Emergency (ER) | payer OTHER, SELFPAY ==
[2021-05-30 20:39] VITALS: BP 117/72; PULSE 57; RESP 14; TEMP 36.3; O2SAT 100; BMI 27.1
--- NOTE | 2021-05-30 20:42 | DI.RAD.S_ITS ---
PROCEDURE: XR CHEST 1V INDICATIONS: chest pain TECHNIQUE: One view of the chest was acquired. COMPARISON: [facility], CR, XR CHEST 2V, 01/10/2018, 0:28. FINDINGS: Surgical changes and devices: None. Lungs and pleura: Mild appearance right basilar coarsening. No pleural effusions or pneumothorax. Mediastinum: Mediastinal contours appear normal. Heart size is normal. Bones and chest wall: No suspicious bony lesions. Overlying soft tissues appear unremarkable. IMPRESSION: Mild right basilar coarsening. This could represent dependent edema versus developing pneumonia. Dictated by: Na Chester M.D. on 05/30/2021 at 21:38 Approved by: Na Chester M.D. on 05/30/2021 at 21:39
[2021-05-30 21:00] VITALS: PULSE 57; O2SAT 100
[2021-05-30 21:15] LABS: Add Manual Diff / Slide Review NO; Basophils Absolute Auto 100 /uL (0-100); Basophils Percent Auto 0.5 % (0-2); Eosinophils Absolute Auto 100 /uL (0-450); Eosinophils Percent Auto 0.7 % (2-4); Hematocrit 41.5 % (41-53); Hemoglobin 13.8 g/dL (13.5-17.5); Lymphocytes Absolute Auto 2600 /uL (1100-4500); Lymphocytes Percent Auto 25.9 % (25-40); Mean Corpuscular HGB Conc 33.1 % (30-36); Mean Corpuscular Hemoglobin 29.1 PG (26-34); Mean Corpuscular Volume 87.7 fL (80-100); Monocytes Absolute Auto 1000 /uL (0-900); Monocytes Percent Auto 9.5 % (3-14); Neutrophils Absolute Auto 6400 /uL (1500-7000); Neutrophils Percent Auto 63.4 % (50-75); Platelet Count 236 X10^3/uL (150-400); Red Blood Cell Count 4.74 X10^6/uL (4.5-5.9); Red Cell Distribution Width 12.8 % (11.6-14.8); White Blood Cell Count 10.2 X10^3/uL (4.5-11.0)
[2021-05-30 21:18] LABS: Alanine Aminotransferase 23 IU/L (<50); Albumin 4.1 g/dL (3.5-5.0); Albumin Globulin Ratio 1.5 (1.0-2.8); Alkaline Phosphatase 41 U/L (38-126); Aspartate Aminotransferase 25 IU/L (17-59); BUN Creatinine Ratio 16.1 (6-22); Bilirubin Total 0.3 mg/dL (0.2-1.3); Blood Urea Nitrogen 18 mg/dL (9-20); Calcium 8.8 mg/dL (8.4-10.2); Carbon Dioxide 29 mmol/L (22-32); Chloride 102 mmol/L (98-107); Creatine Kinase 145 U/L (55-170); Estimated Glomerular Filt Rate > 60.0 mL/min (>60); Globulin 2.7 g/dL (1.7-4.1); Glucose 123 mg/dL (70-100); Lipase 84 U/L (23-300); Potassium 3.8 mmol/L (3.4-5.1); Sodium 138 mmol/L (137-145); Total Protein 6.8 g/dL (6.3-8.2)
[2021-05-30 21:29] LABS: Troponin I < 0.012 ng/mL (0.01-0.034)
[2021-05-30 21:30] VITALS: PULSE 54; O2SAT 99
[2021-05-30 21:33] LABS: CKMB % Relative Index 0.6 % (1.5-5.0); Creatine Kinase MB 0.88 ng/mL (<2.37); HEMOLYSIS 23 (0-50)
--- NOTE | 2021-05-30 21:35 | PC.NURSE ---
Pt took edibles tonight and half viagra tablet. started to feel palpitations and feel nervous with some chest pain. EMS states +orthostatics. NSR, 99% RA. calm and cooperative at this time.
[2021-05-30 21:45] LABS: D Dimer < 200 ng/mL (<230)
[2021-05-30 22:49] VITALS: BP 102/51; PULSE 59; O2SAT 96
[2021-05-30 23:39] VITALS: PULSE 72; O2SAT 98
[2021-05-31] VITALS: PULSE 57; O2SAT 96
[2021-05-31 00:30] VITALS: PULSE 53; O2SAT 95
--- NOTE | 2021-05-31 01:05 | ED.SYNCOPE ---
HPI - Syncope General Chief Complaint: Syncope Stated Complaint: Chest Pain/Sync episodes Time Seen by Provider: 05/30/21 21:22 Source: patient Mode of arrival: EMS Limitations: no limitations History of Present Illness HPI narrative: 35-year-old male former smoker presents by EMS for evaluation of syncopal episode prior to his arrival. Patient has had few episodes not unlikely this over the past few months with neurologic consultation and thoughts relate to syncope. Patient was in his normal state of health over the course of the day and admittedly had a few dabs THC and took a half tab of Cialis prior to engaging in intercourse with his significant other. He began feeling a bit dizzy, lightheaded and sweaty and apparently tried to stand up at which point he collapsed having passed out. EMS was called for evaluation. He has had no fever chills, denies any recent trauma or injury and has no neck pain. 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 Related Data Home Medications Medication Instructions Recorded Confirmed No Known Home Medications 05/01/19 05/01/19 Allergies Allergy/AdvReac Type Severity Reaction Status Date / Time shellfish derived Allergy Verified 05/30/21 20:39 Review of Systems Review of Systems Narrative: GENERAL: Denies chills, fatigue, malaise, fever, sweats. HEENT: Denies sinus pain, ear pain, sore throat, difficulty swallowing, dizziness. RESPIRATORY: Denies dyspnea, cough, wheezing, hemoptysis, sputum. CARDIOVASCULAR: See HPI GASTROINTESTINAL: Denies nausea, vomiting, abdominal pain, diarrhea, constipation, melena. : Denies dysuria, frequency, incontinence, hematuria, urinary retention. MUSCULOSKELETAL: denies weakness, joint pain, or bony pain SKIN: Denies rash, skin lesions, or other NEUROLOGIC: Denies weakness, headache, numbness, change in speech, confusion, seizures, incoordination. PSYCHIATRIC: No concerning psychosocial issues. 12 point review of systems is negative except for those stated above Patient History Medical History Depression Suicidal ideation Surgical History No pertinent past surgical history Social History Smoking Status: Former smoker alcohol intake: former substance use type: marijuana Smoking Status: Former smoker alcohol intake frequency: other Substance Use Type: marijuana Exam Narrative Exam Narrative: GENERAL: [35 year old patient appears stated age. Well-developed patient, in mild distress. HEAD: Atraumatic. Normocephalic. EYES: Pupils equal round and reactive. Extraocular motions intact. No scleral icterus. No injection or drainage. ENT: Nose without bleeding, purulent drainage. Throat without erythema, tonsillar hypertrophy or exudate. Airway patent. NECK: Trachea midline. Non tender CARDIOVASCULAR: Regular rate and rhythm without murmurs, gallops, or rubs. RESPIRATORY: Clear to auscultation. Breath sounds equal bilaterally. No wheezes, rales, or rhonchi. GASTROINTESTINAL: Abdomen soft, non-tender, nondistended. EXTREMITIES: No edema or joint tenderness. BACK: Nontender without deformity or crepitance. No flank tenderness. NEURO: AOx3. SKIN: No rash or erythema of visible areas Initial Vital Signs Initial Vital Signs: Vital Signs Temperature 97.3 F L 05/30/21 20:39 Pulse Rate 57 L 05/30/21 20:39 Respiratory Rate 14 05/30/21 20:39 Blood Pressure 117/72 05/30/21 20:39 Pulse Oximetry 100 05/30/21 20:39 Course Orders Ordered: ED Orders 05/30/21 20:57 Complete Blood Count AUTO DIFF Stat Comprehensive Metabolic Panel Stat D Dimer Stat Lipase Stat Troponin & CK Cardiac Panel Stat Reevaluation(s) Reevaluation #1: Patient largely asymptomatic after above-stated therapies. Feels great at time of discharge Vital Signs Vital signs: Vital Signs - 8 hr 05/30/21 22:49 05/30/21 23:39 05/31/21 00:00 Pulse Rate 59 L 72 57 L Pulse Rate [Orthostatic Sitting] Pulse Rate [Orthostatic Standing] Blood Pressure 102/51 L Blood Pressure [Orthostatic Sitting] Blood Pressure [Orthostatic Standing] Pulse Oximetry 96 98 96 05/31/21 00:30 05/31/21 01:25 05/31/21 01:27 Pulse Rate 53 L 56 L 89 Pulse Rate [Orthostatic Sitting] Pulse Rate [Orthostatic Standing] Blood Pressure 119/69 119/58 L Blood Pressure [Orthostatic Sitting] Blood Pressure [Orthostatic Standing] Pulse Oximetry 95 96 99 05/31/21 01:29 05/31/21 01:30 Pulse Rate 80 Pulse Rate [Orthostatic Sitting] 57 L Pulse Rate [Orthostatic Standing] 89 Blood Pressure Blood Pressure [Orthostatic Sitting] 119/69 Blood Pressure [Orthostatic Standing] 119/58 L Pulse Oximetry 98 MDM - Syncope Lab Data Result diagrams: 05/30/21 20:57 05/30/21 20:57 Labs: Lab Results 05/30/21 05/30/21 05/30/21 Range/Units 20:57 20:57 20:57 WBC 10.2 (4.5-11.0) X10^3/uL RBC 4.74 (4.5-5.9) X10^6/uL Hgb 13.8 (13.5-17.5) g/dL Hct 41.5 (41-53) % MCV 87.7 (80-100) fL MCH 29.1 (26-34) PG MCHC 33.1 (30-36) % RDW 12.8 (11.6-14.8) % Plt Count 236 (150-400) X10^3/uL Neut % (Auto) 63.4 (50-75) % Lymph % (Auto) 25.9 (25-40) % [place] % (Auto) 9.5 (3-14) % Eos % (Auto) 0.7 L (2-4) % Baso % (Auto) 0.5 (0-2) % Neut # (Auto) 6400 (2976-0334) /uL Lymph # (Auto) 2600 (7444-5518) /uL [place] # (Auto) 1000 H (0-900) /uL Eos # (Auto) 100 (0-450) /uL Baso # (Auto) 100 (0-100) /uL D-Dimer < 200 (<230) ng/mL Sodium 138 (137-145) mmol/L Potassium 3.8 (3.4-5.1) mmol/L Chloride 102 (98-107) mmol/L Carbon Dioxide 29 (22-32) mmol/L BUN 18 (9-20) mg/dL Creatinine 1.12 (0.66-1.25) mg/dL Estimated GFR > 60.0 (>60) mL/min BUN/Creatinine Ratio 16.1 (6-22) Glucose 123 H (70-100) mg/dL Calcium 8.8 (8.4-10.2) mg/dL Total Bilirubin 0.3 (0.2-1.3) mg/dL AST 25 (17-59) IU/L ALT 23 (<50) IU/L Alkaline Phosphatase 41 (38-126) U/L Total Creatine Kinase 145 (55-170) U/L CK-MB (CK-2) 0.88 (<2.37) ng/mL CK-MB (CK-2) Rel Index 0.6 L (1.5-5.0) % Troponin I < 0.012 (0.01-0.034) ng/mL Total Protein 6.8 (6.3-8.2) g/dL Albumin 4.1 (3.5-5.0) g/dL Globulin 2.7 (1.7-4.1) g/dL Albumin/Globulin Ratio 1.5 (1.0-2.8) Lipase 84 (23-300) U/L MDM Narrative Medical decision making narrative: Patient presents for syncopal episode. Multiple diagnoses considered including multifactorial from stress and medications, anemia, blood clot versus other. Patient has a very reassuring exam and labs. No indication for CT angiogram to rule out PE given negative D-dimer. Labs otherwise also very reassuring. Patient's symptoms greatly improved and he is in the department and asymptomatic for few hours. After extensive discussion it seems likely multiple elements have played a role including the use of Cialis, THC, stress, significant caffeine intake among others. Return precautions given and questions have been answered to his apparent satisfaction Discharge Plan Departure Patient Disposition: Home Clinical Impression: Syncope and collapse Instructions: DI for Syncope in Adults (Fainting) Activity Restrictions/Additional Instructions: *You have been diagnosed with [syncope, likely from multiple reasons which we have discussed at length. *What to do: *Please continue to take your regular medications as directed. [ ] New medication prescriptions sent to your pharmacy: [ ] [ ] New medication written as a paper prescription [x ] No new medications given *Please follow up with your primary care provider in 2-3 days, call for an appointment. Let them know you were seen in the Emergency Department and that we ask that you be seen in follow up. We will electronically transmit a record of today's note if your PCP is in our system *If you do not have a primary care provider please contact the [facility] Resource line at [phone]. They will ask some questions about your medical history and help get you set up with a doctor in the community. *Return to Emergency Department if you should have any new, worsening or concerning symptoms, such as [fever greater than 101 F, shaking chills, worsening pain, persistent vomiting or other bothersome symptoms] Prescriptions: No Action No Known Home Medications RF: 0 Referrals: Angela Mojica MD [Primary Care Provider] -
[2021-05-31 01:25] VITALS: BP 119/69; PULSE 56; O2SAT 96
[2021-05-31 01:27] VITALS: BP 119/58; PULSE 89; O2SAT 99
[2021-05-31 01:29] VITALS: BP 119/58; BP 119/69; PULSE 57; PULSE 89
[2021-05-31 01:30] VITALS: PULSE 80; O2SAT 98
== END 2021-05-31 01:47 | disposition home or self-care (01) ==
PROVIDERS: Emergency Provider Emergency Medicine; PCP Family Medicine
DX: R55 Syncope and collapse (principal); R07.9 Chest pain, unspecified
CPT/HCPCS: 36415; 71045; 80053; 82550; 82553; 83690; 84484; 85025; 85379; 93005; 93010; 99284

== ENCOUNTER 2021-06-23 03:50 | Emergency (ER) | payer OTHER, SELFPAY ==
[2021-06-23 03:54] VITALS: PULSE 64; O2SAT 98
[2021-06-23 04:00] VITALS: PULSE 56; RESP 13; O2SAT 98
[2021-06-23 04:02] VITALS: BP 157/98; PULSE 64; RESP 18; TEMP 36.8; O2SAT 97; BMI 27.1
[2021-06-23 04:11] LABS: Add Manual Diff / Slide Review NO; Basophils Absolute Auto 100 /uL (0-100); Basophils Percent Auto 0.8 % (0-2); Eosinophils Absolute Auto 100 /uL (0-450); Eosinophils Percent Auto 1.7 % (2-4); Hematocrit 39.4 % (41-53); Hemoglobin 13.5 g/dL (13.5-17.5); Lymphocytes Absolute Auto 3200 /uL (1100-4500); Mean Corpuscular HGB Conc 34.3 % (30-36); Mean Corpuscular Hemoglobin 29.2 PG (26-34); Mean Corpuscular Volume 85.4 fL (80-100); Monocytes Absolute Auto 900 /uL (0-900); Monocytes Percent Auto 11.4 % (3-14); Neutrophils Absolute Auto 3500 /uL (1500-7000); Neutrophils Percent Auto 45.1 % (50-75); Platelet Count 207 X10^3/uL (150-400); Red Blood Cell Count 4.61 X10^6/uL (4.5-5.9); White Blood Cell Count 7.8 X10^3/uL (4.5-11.0)
[2021-06-23 04:21] LABS: Alanine Aminotransferase 31 IU/L (<50); Albumin 4.4 g/dL (3.5-5.0); Albumin Globulin Ratio 1.6 (1.0-2.8); Alkaline Phosphatase 38 U/L (38-126); Aspartate Aminotransferase 23 IU/L (17-59); BUN Creatinine Ratio 21.1 (6-22); Bilirubin Total 0.4 mg/dL (0.2-1.3); Blood Urea Nitrogen 20 mg/dL (9-20); Calcium 9.2 mg/dL (8.4-10.2); Carbon Dioxide 28 mmol/L (22-32); Chloride 99 mmol/L (98-107); Creatine Kinase 108 U/L (55-170); Estimated Glomerular Filt Rate > 60.0 mL/min (>60); Globulin 2.7 g/dL (1.7-4.1); Glucose 100 mg/dL (70-100); HEMOLYSIS < 15 (0-50); Sodium 133 mmol/L (137-145); Total Protein 7.1 g/dL (6.3-8.2)
--- NOTE | 2021-06-23 04:29 | ED.CHESTPAIN ---
HPI - Chest Pain General Chief Complaint: Anxiety Stated Complaint: anxiety/ chest pain Time Seen by Provider: 06/23/21 03:58 Source: patient and EMS Mode of arrival: EMS Limitations: no limitations History of Present Illness HPI narrative: 36-year-old male former smoker with history of anxiety and syncope presents by EMS for evaluation of palpitations, chest pain and anxiety that started this evening. He has not had a syncopal episode in at least a week or so. He stopped using THC containing products in is largely feeling a bit better. He admittedly is going through significantly stressful time with changes at work and his living situation. He consumes a significant amount of caffeine and nicotine daily. He states that he was feeling a bit anxious this evening and sat down to eat dinner with and felt anterior chest pressure and flushed. He did not feel dizzy or lightheaded. He contacted the medics and had his vitals taken and found his blood pressure to be a bit up. He was evaluated by paramedics, had a reassuring 12 lead and was sent by basic EMT Related Data Home Medications Medication Instructions Recorded Confirmed No Known Home Medications 05/01/19 05/01/19 Allergies Allergy/AdvReac Type Severity Reaction Status Date / Time shellfish derived Allergy Verified 05/30/21 20:39 Review of Systems Review of Systems Narrative: GENERAL: Denies chills, fatigue, malaise, fever, sweats. HEENT: Denies sinus pain, ear pain, sore throat, difficulty swallowing, dizziness. RESPIRATORY: Denies dyspnea, cough, wheezing, hemoptysis, sputum. CARDIOVASCULAR: See HPI GASTROINTESTINAL: Denies nausea, vomiting, abdominal pain, diarrhea, constipation, melena. : Denies dysuria, frequency, incontinence, hematuria, urinary retention. MUSCULOSKELETAL: denies weakness, joint pain, or bony pain SKIN: Denies rash, skin lesions, or other NEUROLOGIC: Denies weakness, headache, numbness, change in speech, confusion, seizures, incoordination. PSYCHIATRIC: See HPI 12 point review of systems is negative except for those stated above Patient History Medical History (Updated 06/23/21 @ 04:37 by Vaibhav Velazquez DO) Depression Suicidal ideation Surgical History No pertinent past surgical history Social History Smoking Status: Former smoker alcohol intake: former substance use type: marijuana Smoking Status: Former smoker alcohol intake frequency: other Substance Use Type: does not use Exam Narrative Exam Narrative: GENERAL: [36 year old patient appears stated age. Well-developed patient, in mild distress. Anxious HEAD: Atraumatic. Normocephalic. EYES: Pupils equal round and reactive. Extraocular motions intact. No scleral icterus. No injection or drainage. ENT: Nose without bleeding, purulent drainage. Throat without erythema, tonsillar hypertrophy or exudate. Airway patent. NECK: Trachea midline. Non tender CARDIOVASCULAR: Regular rate and rhythm without murmurs, gallops, or rubs. RESPIRATORY: Clear to auscultation. Breath sounds equal bilaterally. No wheezes, rales, or rhonchi. GASTROINTESTINAL: Abdomen soft, non-tender, nondistended. EXTREMITIES: No edema or joint tenderness. BACK: Nontender without deformity or crepitance. No flank tenderness. NEURO: AOx3. SKIN: No rash or erythema of visible areas Initial Vital Signs Initial Vital Signs: Vital Signs Temperature 98.3 F 06/23/21 04:02 Pulse Rate 64 06/23/21 04:02 Respiratory Rate 18 06/23/21 04:02 Blood Pressure 157/98 H 06/23/21 04:02 Pulse Oximetry 97 06/23/21 04:02 Course Orders Ordered: ED Orders 06/23/21 03:58 Complete Blood Count AUTO DIFF Stat Comprehensive Metabolic Panel Stat Troponin & CK Cardiac Panel Stat EKG-12 Lead Stat Vital Signs Vital signs: Vital Signs - 8 hr 06/23/21 04:02 Temperature 98.3 F Pulse Rate 64 Respiratory Rate 18 Blood Pressure 157/98 H Pulse Oximetry 97 MDM - Chest Pain Lab Data Result diagrams: 06/23/21 04:05 06/23/21 04:05 Labs: Lab Results 06/23/21 06/23/21 Range/Units 04:05 04:05 WBC 7.8 (4.5-11.0) X10^3/uL RBC 4.61 (4.5-5.9) X10^6/uL Hgb 13.5 (13.5-17.5) g/dL Hct 39.4 L (41-53) % MCV 85.4 (80-100) fL MCH 29.2 (26-34) PG MCHC 34.3 (30-36) % RDW 13.0 (11.6-14.8) % Plt Count 207 (150-400) X10^3/uL Neut % (Auto) 45.1 L (50-75) % Lymph % (Auto) 41.0 H (25-40) % [place] % (Auto) 11.4 (3-14) % Eos % (Auto) 1.7 L (2-4) % Baso % (Auto) 0.8 (0-2) % Neut # (Auto) 3500 (7630-6833) /uL Lymph # (Auto) 3200 (3568-6780) /uL [place] # (Auto) 900 (0-900) /uL Eos # (Auto) 100 (0-450) /uL Baso # (Auto) 100 (0-100) /uL Sodium 133 L (137-145) mmol/L Potassium 4.0 (3.4-5.1) mmol/L Chloride 99 (98-107) mmol/L Carbon Dioxide 28 (22-32) mmol/L BUN 20 (9-20) mg/dL Creatinine 0.95 (0.66-1.25) mg/dL Estimated GFR > 60.0 (>60) mL/min BUN/Creatinine Ratio 21.1 (6-22) Glucose 100 (70-100) mg/dL Calcium 9.2 (8.4-10.2) mg/dL Total Bilirubin 0.4 (0.2-1.3) mg/dL AST 23 (17-59) IU/L ALT 31 (<50) IU/L Alkaline Phosphatase 38 (38-126) U/L Total Creatine Kinase 108 (55-170) U/L Troponin I < 0.012 (0.01-0.034) ng/mL Total Protein 7.1 (6.3-8.2) g/dL Albumin 4.4 (3.5-5.0) g/dL Globulin 2.7 (1.7-4.1) g/dL Albumin/Globulin Ratio 1.6 (1.0-2.8) ECG Data Interpretation: Sinus bradycardia with rate of 52. No ST segmental elevations or depressions. No T-wave inversions. No ectopy MDM Narrative Medical decision making narrative: Patient has a very reassuring history and physical exam. EKG has no ectopy or occlusive findings. Labs are unremarkable. Patient currently undergoing significant amount of stress and likely has been self medicating with a combination of caffeine, nicotine and previously THC. Patient resting comfortably. Return precautions discussed and questions answered to his apparent satisfaction Discharge Plan Departure Patient Disposition: Home Clinical Impression: Anxiety, Atypical chest pain Instructions: DI for Atypical Chest Pain, DI for Anxiety -- Adult Activity Restrictions/Additional Instructions: *You have been diagnosed with [atypical chest pain and anxiety. Your history, physical exam, labs and EKG are very reassuring. There is no evidence of electrolyte abnormality, heart attack or other significant finding. *What to do: *Please continue to take your regular medications as directed. [ ] New medication prescriptions sent to your pharmacy: [ ] [ ] New medication written as a paper prescription [x ] No new medications given *Please follow up with your primary care provider in 2-3 days, call for an appointment. Let them know you were seen in the Emergency Department and that we ask that you be seen in follow up. We will electronically transmit a record of today's note if your PCP is in our system *If you do not have a primary care provider please contact the [facility] Resource line at [phone]. They will ask some questions about your medical history and help get you set up with a doctor in the community. *It's great news that you have cut THC out of the routine, however, as we discussed it is certainly reasonable to consider cutting down on caffeine and nicotine as they can both contribute to the symptoms you are experiencing. *Return to Emergency Department if you should have any new, worsening or concerning symptoms, such as [fever greater than 101 F, shaking chills, worsening pain, persistent vomiting or other bothersome symptoms] Prescriptions: No Action No Known Home Medications RF: 0 Referrals: Angela Mojica MD [Primary Care Provider] -
[2021-06-23 04:30] VITALS: PULSE 49; RESP 19; O2SAT 97
[2021-06-23 04:34] LABS: Troponin I < 0.012 ng/mL (0.01-0.034)
[2021-06-23 04:37] LABS: CKMB % Relative Index 0.9 % (1.5-5.0); Creatine Kinase MB 0.97 ng/mL (<2.37)
[2021-06-23 04:47] VITALS: PULSE 57
[2021-06-23 04:49] VITALS: BP 131/62
== END 2021-06-23 04:53 | disposition home or self-care (01) ==
PROVIDERS: Emergency Provider Emergency Medicine; PCP Family Medicine
DX: R07.89 Other chest pain (principal); R00.2 Palpitations; F41.9 Anxiety disorder, unspecified
CPT/HCPCS: 80053; 82550; 82553; 84484; 85025; 93005; 93010; 99283; 99284

== ENCOUNTER 2021-07-12 12:43 | Emergency (ER) | payer OTHER, SELFPAY ==
[2021-07-12 12:55] VITALS: BP 134/59; PULSE 55; RESP 16; TEMP 36.7; O2SAT 99; BMI 27.1
--- NOTE | 2021-07-12 13:25 | DI.RAD.S_ITS ---
PROCEDURE: XR CHEST 1V INDICATIONS: chest pain TECHNIQUE: One view of the chest was acquired. COMPARISON: [facility], CR, XR CHEST 1V, 05/30/2021, 20:46. FINDINGS: Surgical changes and devices: None. Lungs and pleura: Lungs are clear. No pleural effusions or pneumothorax. Mediastinum: Mediastinal contours appear normal. Heart size is normal. Bones and chest wall: No suspicious bony lesions. Overlying soft tissues appear unremarkable. IMPRESSION: Portable chest within normal limits. Dictated by: Sarthak Rojas M.D. on 07/12/2021 at 13:31 Approved by: Sarthak Rojas M.D. on 07/12/2021 at 13:31
[2021-07-12 13:44] LABS: Add Manual Diff / Slide Review NO; Basophils Absolute Auto 100 /uL (0-100); Basophils Percent Auto 0.7 % (0-2); Eosinophils Absolute Auto 100 /uL (0-450); Eosinophils Percent Auto 1.9 % (2-4); Hematocrit 36.8 % (41-53); Hemoglobin 12.7 g/dL (13.5-17.5); Lymphocytes Absolute Auto 3000 /uL (1100-4500); Lymphocytes Percent Auto 42.6 % (25-40); Mean Corpuscular HGB Conc 34.4 % (30-36); Mean Corpuscular Hemoglobin 29.6 PG (26-34); Mean Corpuscular Volume 86.1 fL (80-100); Monocytes Absolute Auto 1100 /uL (0-900); Monocytes Percent Auto 15.9 % (3-14); Neutrophils Absolute Auto 2700 /uL (1500-7000); Neutrophils Percent Auto 38.9 % (50-75); Platelet Count 216 X10^3/uL (150-400); Red Blood Cell Count 4.28 X10^6/uL (4.5-5.9); Red Cell Distribution Width 13.4 % (11.6-14.8)
[2021-07-12 13:49] LABS: Alanine Aminotransferase 25 IU/L (<50); Albumin Globulin Ratio 1.5 (1.0-2.8); Alkaline Phosphatase 35 U/L (38-126); Aspartate Aminotransferase 23 IU/L (17-59); BUN Creatinine Ratio 16.5 (6-22); Bilirubin Total 0.5 mg/dL (0.2-1.3); Blood Urea Nitrogen 16 mg/dL (9-20); Calcium 8.9 mg/dL (8.4-10.2); Carbon Dioxide 30 mmol/L (22-32); Chloride 99 mmol/L (98-107); Creatine Kinase 133 U/L (55-170); Estimated Glomerular Filt Rate > 60.0 mL/min (>60); Globulin 2.7 g/dL (1.7-4.1); Glucose 97 mg/dL (70-100); HEMOLYSIS < 15 (0-50); Lipase 78 U/L (23-300); Potassium 3.8 mmol/L (3.4-5.1); Sodium 135 mmol/L (137-145); Total Protein 6.7 g/dL (6.3-8.2)
[2021-07-12 14:00] LABS: Troponin I < 0.012 ng/mL (0.01-0.034)
[2021-07-12 14:04] LABS: CKMB % Relative Index 0.8 % (1.5-5.0); Creatine Kinase MB 1.07 ng/mL (<2.37)
--- NOTE | 2021-07-12 15:18 | ED_ITS ---
HPI - Chest Pain <Aydin Mauro PA-C - Last Filed: 07/12/21 18:46> General Chief Complaint: Chest Pain Stated Complaint: Chest Pain/Discomfort Time Seen by Provider: 07/12/21 14:47 Source: patient Mode of arrival: Ambulatory Limitations: no limitations History of Present Illness HPI narrative: Patient is a 36-year-old male presenting to the emergency department today for evaluation of chest pain. Patient states that he was work and when his chest pain began approximately 3 hours ago. He describes the pain as a tightness in his chest, any states that the pain he is currently feeling is similar to the pain he is experiencing the past associated with anxiety. Of note, patient stat es that he does not feel that he is having a panic attack however. Patient denies fever, chills, shortness of breath, cough, nausea, vomiting, diarrhea, diaphoresis, arm pain, dysuria, hematuria, back pain. No other concerns voiced at this time. Related Data Home Medications Medication Instructions Recorded Confirmed No Known Home Medications 05/01/19 05/01/19 Allergies Allergy/AdvReac Type Severity Reaction Status Date / Time shellfish derived Allergy Verified 05/30/21 20:39 Review of Systems <Aydin Mauro PA-C - Last Filed: 07/12/21 18:46> Constitutional Constitutional: Denies chills, Denies fatigue, Denies fever(s), Denies frequent falls, Denies lethargy and Denies weakness Eyes Eyes: Denies loss of vision ENT Ears, Nose, Mouth, and Throat: Denies dizziness and Denies neck pain Cardiovascular Cardiovascular: Reports chest pain (Described as tightness, similar to anxiety related chest pain), Denies irregular heart rhythm, Denies lightheadedness, Denies palpitations, Denies dyspnea, Denies dyspnea on exertion and Denies orthopnea Respiratory Respiratory: Denies cough, Denies dyspnea, Denies dyspnea on exertion and Denies wheezing Gastrointestinal Gastrointestinal: Denies abdominal pain, Denies change in bowel habits, Denies diarrhea, Denies nausea and Denies vomiting Genitourinary Genitourinary: Denies hematuria, Denies flank pain, Denies urinary incontinence and Denies urinary urgency Musculoskeletal Musculoskeletal: Denies back pain, Denies muscle weakness, Denies neck pain, Denies numbness and Denies tingling Neurologic Neurologic: Denies behavioral changes, Denies confusion, Denies dizziness, Denies frequent falls, Denies loss of vision, Denies numbness, Denies tingling and Denies weakness Psychiatric Psychiatric: Denies behavioral changes and Denies confusion Endocrine Endocrine: Denies fatigue and Denies palpitations Allergic/Immunologic Allergic/Immunologic: Denies wheezing Patient History <Aydin Mauro PA-C - Last Filed: 07/12/21 18:46> Medical History (Updated 07/12/21 @ 16:26 by Aydin Mauro PA-C) Depression Suicidal ideation Surgical History No pertinent past surgical history Social History Smoking Status: Current some day smoker alcohol intake: former substance use type: marijuana Smoking Status: Current some day smoker alcohol intake frequency: other Substance Use Type: does not use Exam <Aydin Mauro PA-C - Last Filed: 07/12/21 18:46> Narrative Exam Narrative: GENERAL: 36 year old patient appears stated age. Well-developed patient, in no acute distress. HEAD: Atraumatic. Normocephalic. EYES: Pupils equal round and reactive. Extraocular motions intact. No scleral icterus. No injection or drainage. ENT: Nose without bleeding, purulent drainage. Throat without erythema, tonsillar hypertrophy or exudate. Airway patent. NECK: Trachea midline. Non tender CARDIOVASCULAR: Bradycardia however normal rhythm without murmurs, gallops, or rubs. RESPIRATORY: Clear to auscultation. Breath sounds equal bilaterally. No wheezes, rales, or rhonchi. GASTROINTESTINAL: Abdomen soft, non-tender, nondistended. EXTREMITIES: No edema or joint tenderness. BACK: Nontender without deformity or crepitance. No flank tenderness. NEURO: AOx3. SKIN: No rash or erythema of visible areas Initial Vital Signs Initial Vital Signs: Vital Signs Temperature 98.1 F 07/12/21 12:55 Pulse Rate 55 L 07/12/21 12:55 Respiratory Rate 16 07/12/21 12:55 Blood Pressure 134/59 L 07/12/21 12:55 Pulse Oximetry 99 07/12/21 12:55 <Yesi Sutton DO - Last Filed: 07/15/21 07:49> Initial Vital Signs Initial Vital Signs: Vital Signs Temperature 98.1 F 07/12/21 12:55 Pulse Rate 55 L 07/12/21 12:55 Respiratory Rate 16 07/12/21 12:55 Blood Pressure 134/59 L 07/12/21 12:55 Pulse Oximetry 99 07/12/21 12:55 Course <Aydin Mauro PA-C - Last Filed: 07/12/21 18:46> Course Course Narrative: CBC, CMP, lipase, troponin with repeat, chest x-ray, EKG with repeat ordered. Orders Ordered: ED Orders 07/12/21 13:24 Complete Blood Count AUTO DIFF Stat Comprehensive Metabolic Panel Stat Lipase Stat Troponin & CK Cardiac Panel Stat 07/12/21 13:25 XR chest 1V Stat EKG-12 Lead Stat 07/12/21 15:38 Trop I [Troponin I] Stat 07/12/21 16:08 EKG-12 Lead Stat Vital Signs Vital signs: Vital Signs - 8 hr 07/12/21 12:55 07/12/21 15:40 Temperature 98.1 F Pulse Rate 55 L 55 L Respiratory Rate 16 16 Blood Pressure 134/59 L 114/50 L Pulse Oximetry 99 99 <Yesi Sutton DO - Last Filed: 07/15/21 07:49> Orders Ordered: ED Orders 07/12/21 13:24 Complete Blood Count AUTO DIFF Stat Comprehensive Metabolic Panel Stat Lipase Stat Troponin & CK Cardiac Panel Stat 07/12/21 13:25 XR chest 1V Stat EKG-12 Lead Stat 07/12/21 15:38 Trop I [Troponin I] Stat 07/12/21 16:08 EKG-12 Lead Stat Vital Signs Vital signs: Vital Signs - 8 hr 07/12/21 12:55 07/12/21 15:40 Temperature 98.1 F Pulse Rate 55 L 55 L Respiratory Rate 16 16 Blood Pressure 134/59 L 114/50 L Pulse Oximetry 99 99 MDM - Chest Pain <Aydin Mauro PA-C - Last Filed: 07/12/21 18:46> Lab Data Result diagrams: 07/12/21 13:24 07/12/21 13:24 Labs: Lab Results 07/12/21 07/12/21 07/12/21 Range/Units 13:24 13:24 15:38 WBC 7.0 (4.5-11.0) X10^3/uL RBC 4.28 L (4.5-5.9) X10^6/uL Hgb 12.7 L (13.5-17.5) g/dL Hct 36.8 L (41-53) % MCV 86.1 (80-100) fL MCH 29.6 (26-34) PG MCHC 34.4 (30-36) % RDW 13.4 (11.6-14.8) % Plt Count 216 (150-400) X10^3/uL Neut % (Auto) 38.9 L (50-75) % Lymph % (Auto) 42.6 H (25-40) % [place] % (Auto) 15.9 H (3-14) % Eos % (Auto) 1.9 L (2-4) % Baso % (Auto) 0.7 (0-2) % Neut # (Auto) 2700 (4560-4854) /uL Lymph # (Auto) 3000 (0870-0261) /uL [place] # (Auto) 1100 H (0-900) /uL Eos # (Auto) 100 (0-450) /uL Baso # (Auto) 100 (0-100) /uL Sodium 135 L (137-145) mmol/L Potassium 3.8 (3.4-5.1) mmol/L Chloride 99 (98-107) mmol/L Carbon Dioxide 30 (22-32) mmol/L BUN 16 (9-20) mg/dL Creatinine 0.97 (0.66-1.25) mg/dL Estimated GFR > 60.0 (>60) mL/min BUN/Creatinine Ratio 16.5 (6-22) Glucose 97 (70-100) mg/dL Calcium 8.9 (8.4-10.2) mg/dL Total Bilirubin 0.5 (0.2-1.3) mg/dL AST 23 (17-59) IU/L ALT 25 (<50) IU/L Alkaline Phosphatase 35 L (38-126) U/L Total Creatine Kinase 133 (55-170) U/L CK-MB (CK-2) 1.07 (<2.37) ng/mL CK-MB (CK-2) Rel Index 0.8 L (1.5-5.0) % Troponin I < 0.012 < 0.012 (0.01-0.034) ng/mL Total Protein 6.7 (6.3-8.2) g/dL Albumin 4.0 (3.5-5.0) g/dL Globulin 2.7 (1.7-4.1) g/dL Albumin/Globulin Ratio 1.5 (1.0-2.8) Lipase 78 (23-300) U/L Imaging Data Chest x-ray: Radiologist's Impression: PROCEDURE:? XR CHEST 1V ? INDICATIONS:? chest pain ? TECHNIQUE:? One view of the chest was acquired.? ? COMPARISON:? [facility], , XR CHEST 1V, 05/30/2021, 20:46. ? FINDINGS:? ? Surgical changes and devices:? None.? ? Lungs and pleura:? Lungs are clear.? No pleural effusions or pneumothorax.? ? Mediastinum:? Mediastinal contours appear normal.? Heart size is normal.? ? Bones and chest wall:? No suspicious bony lesions.? Overlying soft tissues appear unremarkable.? IMPRESSION:? ? Portable chest within normal limits. ? ? ? Dictated by: Sarthak Rojas M.D. on 07/12/2021 at 13:31 ? ? Approved by: Sarthak Rojas M.D. on 07/12/2021 at 13:31? ECG Data Interpretation: Ventricular rate of 43 beats per minute, MS interval of 150 ms, no ST wave changes. (1302) Ventricular rate of 147 beats per minute, MS interval of 148 ms, no ST wave changes. (1608) [facility] Narrative Medical decision making narrative: Patient is a 36-year-old male presenting to the emergency department today for evaluation of chest pain. To consider myocardial infarction versus ACS versus costochondritis versus anxiety induced chest pain versus musculoskeletal chest pain. Overall physical examination history in vitals are reassuring in the emergency room. Additionally, imaging and laboratory results are reassuring. Patient also notes that his current pain is similar to that which he has experienced in the past when he experiences anxiety. Discussed with patient strict return precautions prior to discharge. At this time he feels comfortable being discharged home. <Yesi Sutton, DO - Last Filed: 07/15/21 07:49> Lab Data Labs: Lab Results 07/12/21 07/12/21 07/12/21 Range/Units 13:24 13:24 15:38 WBC 7.0 (4.5-11.0) X10^3/uL RBC 4.28 L (4.5-5.9) X10^6/uL Hgb 12.7 L (13.5-17.5) g/dL Hct 36.8 L (41-53) % MCV 86.1 (80-100) fL MCH 29.6 (26-34) PG MCHC 34.4 (30-36) % RDW 13.4 (11.6-14.8) % Plt Count 216 (150-400) X10^3/uL Neut % (Auto) 38.9 L (50-75) % Lymph % (Auto) 42.6 H (25-40) % [place] % (Auto) 15.9 H (3-14) % Eos % (Auto) 1.9 L (2-4) % Baso % (Auto) 0.7 (0-2) % Neut # (Auto) 2700 (8018-5531) /uL Lymph # (Auto) 3000 (4301-4845) /uL [place] # (Auto) 1100 H (0-900) /uL Eos # (Auto) 100 (0-450) /uL Baso # (Auto) 100 (0-100) /uL Sodium 135 L (137-145) mmol/L Potassium 3.8 (3.4-5.1) mmol/L Chloride 99 (98-107) mmol/L Carbon Dioxide 30 (22-32) mmol/L BUN 16 (9-20) mg/dL Creatinine 0.97 (0.66-1.25) mg/dL Estimated GFR > 60.0 (>60) mL/min BUN/Creatinine Ratio 16.5 (6-22) Glucose 97 (70-100) mg/dL Calcium 8.9 (8.4-10.2) mg/dL Total Bilirubin 0.5 (0.2-1.3) mg/dL AST 23 (17-59) IU/L ALT 25 (<50) IU/L Alkaline Phosphatase 35 L (38-126) U/L Total Creatine Kinase 133 (55-170) U/L CK-MB (CK-2) 1.07 (<2.37) ng/mL CK-MB (CK-2) Rel Index 0.8 L (1.5-5.0) % Troponin I < 0.012 < 0.012 (0.01-0.034) ng/mL Total Protein 6.7 (6.3-8.2) g/dL Albumin 4.0 (3.5-5.0) g/dL Globulin 2.7 (1.7-4.1) g/dL Albumin/Globulin Ratio 1.5 (1.0-2.8) Lipase 78 (23-300) U/L ECG Data Interpretation: Ventricular rate of 43 beats per minute, MS interval of 150 ms, no ST wave changes. (1302) Ventricular rate of 147 beats per minute, MS interval of 148 ms, no ST wave changes. (1608) Sinus bradycardia with a rate of 47, MS of 162, QRS 90 and QTC of 387. No acute ST changes appreciated. Sinus bradycardia rate of 47 MS 148 QRS 86 and QTC of 368. No acute ST changes noted and no change from prior appreciated. Discharge Plan Departure Patient Disposition: Home Clinical Impression: Anxiety, Chest pain Instructions: DI for Anxiety -- Adult Activity Restrictions/Additional Instructions: *You have been diagnosed with anxiety, chest pain *What to do: *Please continue to take your regular medications as directed. [ ] New medication prescriptions sent to your pharmacy: [ ] [ ] New medication written as a paper prescription [X] No new medications given *Please follow up with your primary care provider in 2-3 days, call for an appointment. Let them know you were seen in the Emergency Department and that we ask that you be seen in follow up. We will electronically transmit a record of today's note if your PCP is in our system *If you do not have a primary care provider please contact the [facility] Resource line at [phone]. They will ask some questions about your medical history and help get you set up with a doctor in the community. *Return to Emergency Department if you should have any new, worsening or concerning symptoms, such as fever greater than 101 F, shaking chills, worsening chest pain, shortness of breath, arm pain, excessive sweating, persistent vomiting or other bothersome symptoms. Prescriptions: No Action No Known Home Medications 0RF <Yesi Sutton DO - Last Filed: 07/15/21 07:49> Cosign ED Attending Cosignature Attestation: Patient's 1st EKG was reviewed by myself light was in the department. Case was discussed with myself and labs and imaging were reviewed as well. Patient had low risk factors with a low heart score. Plan for repeat EKG and troponin which on review of chart. Troponin appears to be negative.
[2021-07-12 15:40] VITALS: BP 114/50; PULSE 55; RESP 16; O2SAT 99
[2021-07-12 16:09] LABS: Troponin I < 0.012 ng/mL (0.01-0.034)
== END 2021-07-12 16:56 | disposition home or self-care (01) ==
PROVIDERS: Emergency Medicine; Emergency Provider Physician Assistant
DX: F41.9 Anxiety disorder, unspecified (principal); R07.9 Chest pain, unspecified
CPT/HCPCS: 36415; 71045; 80053; 82550; 82553; 83690; 84484; 85025; 93005; 99284

== ENCOUNTER 2022-01-24 12:02 | Emergency (ER) | payer OTHER, SELFPAY ==
[2022-01-24 12:10] VITALS: BP 137/90; PULSE 60; RESP 18; TEMP 36.3; O2SAT 99; BMI 27.1
[2022-01-24 14:02] LABS: Appearance Urine UA CLEAR; Bilirubin Urine UA NEGATIVE (NEGATIVE); Color Urine UA YELLOW; Glucose Urine UA TRACE g/dL (Negative); Ketones Urine UA NEGATIVE (NEGATIVE); Leukocyte Esterase Urine UA NEGATIVE (NEGATIVE); Nitrite Urine UA NEGATIVE (Negative); Occult Blood Urine UA NEGATIVE (Negative); Protein Urine UA 1+ (Negative); Urobilinogen Urine UA 0.2 E.U./dL (0.2)
[2022-01-24 14:36] LABS: Bacteria Urine Few (2-10); Culture Indicated Urine Cult Not Indicated; Mucus Urine 1+ (Negative); RBC Urine 0-1/HPF (0-5/HPF); WBC Urine 0-1/HPF (0-5/HPF)
[2022-01-24 15:03] LABS: Adenovirus Not Detected (Not Detect); B. parapertussis Not Detected (Not Detecte); Bordetella pertussis Not Detected (Not Detecte); Chlamydophila pneumoniae Not Detected (Not Detect); Coronavirus 229E Not Detected (Not Detect); Coronavirus HKU1 Not Detected (Not Detect); Coronavirus NL 63 Not Detected (Not Detect); Coronavirus OC43 Not Detected (Not Detect); Human Metapneumovirus Not Detected (Not Detect); Human Rhinovirus/Enterovirus Not Detected (Not Detect); Influenza A Not Detected (Not Detect); Influenza B Not Detected (Not Detect); Mycoplasma pneumoniae Not Detected (Not Detect); Parainfluenza Virus 1 Not Detected (Not Detect); Parainfluenza Virus 2 Not Detected (Not Detect); Parainfluenza Virus 3 Not Detected (Not Detect); Parainfluenza Virus 4 Not Detected (Not Detect); Respiratory Syncytial Virus Not Detected (Not Detect); SARS- CoV-2 Not Detected (Not Detecte)
--- NOTE | 2022-01-24 15:07 | ED.NAVMDI ---
HPI - Nausea/Vomiting/Diarrhea General Chief complaint: Nausea/Vomiting/Diarrhea Stated complaint: Sick/Diarrhea/SOB/Cough Time Seen by Provider: 01/24/22 14:10 Source: patient Mode of arrival: Ambulatory History of Present Illness HPI Narrative: Patient is a 36-year-old male who presents to the emergency department for evaluation vomiting and diarrhea. Patient explains that he returned from a trip in [place] on Tuesday, stating that he began to experience symptoms of vomiting and diarrhea on Tuesday. He states that he has been experiencing approximately 5 episodes of nonbloody diarrhea daily with some associated nonbloody nonbilious emesis. Of note, patient states that he also experienced upper respiratory like symptoms of nasal congestion and cough that have since been improving. Additionally, he states that he had an encounter with a COVID positive individual recently and states that he tested negative for COVID-19 at home. He denies fever, chills, chest pain, shortness of breath, constipation, abdominal pain, dysuria, hematuria, dizziness, lightheadedness, syncope, or any other concerning symptoms. No further concerns were voiced at this time. Related Data Home Medications Medication Instructions Recorded Confirmed No Known Home Medications 05/01/19 05/01/19 Allergies Allergy/AdvReac Type Severity Reaction Status Date / Time shellfish derived Allergy Verified 05/30/21 20:39 Review of Systems Constitutional Constitutional: Denies chills, Denies fatigue, Denies fever(s), Denies frequent falls, Denies lethargy and Denies weakness ENT Ears, Nose, Mouth, and Throat: Denies neck pain Cardiovascular Cardiovascular: Denies chest pain, Denies irregular heart rhythm, Denies lightheadedness, Denies palpitations, Denies dyspnea, Denies dyspnea on exertion and Denies orthopnea Respiratory Respiratory: Denies dyspnea and Denies dyspnea on exertion Gastrointestinal Gastrointestinal: Denies abdominal pain, Denies change in bowel habits, Reports diarrhea, Denies nausea and Reports vomiting Genitourinary Genitourinary: Denies hematuria, Denies flank pain, Denies urinary incontinence and Denies urinary urgency Musculoskeletal Musculoskeletal: Denies back pain, Denies muscle weakness, Denies neck pain, Denies numbness and Denies tingling Integumentary/Breasts Skin/Breast: Denies pruritus, Denies erythema, Denies rash and Denies wounds Neurologic Neurologic: Denies frequent falls, Denies numbness, Denies tingling and Denies weakness Endocrine Endocrine: Denies fatigue and Denies palpitations Patient History Medical History (Updated 01/24/22 @ 15:50 by Aydin Mauro PA-C) Depression Suicidal ideation Surgical History No pertinent past surgical history Social History Smoking Status: Current some day smoker alcohol intake: former substance use type: marijuana Smoking Status: Current some day smoker alcohol intake frequency: other Substance Use Type: does not use Exam Narrative Exam Narrative: GENERAL: 36 year old patient appears stated age. Well-developed patient, in no acute distress. HEAD: Atraumatic. Normocephalic. EYES: Pupils equal round and reactive. Extraocular motions intact. No scleral icterus. No injection or drainage. ENT: Nose without bleeding, purulent drainage. Throat without erythema, tonsillar hypertrophy or exudate. Airway patent. NECK: Trachea midline. Non tender CARDIOVASCULAR: Regular rate and rhythm without murmurs, gallops, or rubs. RESPIRATORY: Clear to auscultation. Breath sounds equal bilaterally. No wheezes, rales, or rhonchi. GASTROINTESTINAL: Abdomen soft, non-tender, nondistended. EXTREMITIES: No edema or joint tenderness. BACK: Nontender without deformity or crepitance. No flank tenderness. NEURO: AOx3. SKIN: No rash or erythema of visible areas Initial Vital Signs Initial Vital Signs: Vital Signs Temperature 97.4 F L 01/24/22 12:10 Pulse Rate 60 01/24/22 12:10 Respiratory Rate 18 01/24/22 12:10 Blood Pressure 137/90 01/24/22 12:10 Pulse Oximetry 99 01/24/22 12:10 Oxygen Delivery Method 01/24/22 12:10 Course Course Course Narrative: Respiratory panel, GI panel, and urinalysis ordered. GI panel pending, will notify patient of results. Orders Ordered: ED Orders 01/24/22 12:11 Respiratory Panel (Film Array) Stat 01/24/22 13:29 Urinalysis and Microscopic Stat 01/24/22 15:30 GI Panel (Film Array) Stat Vital Signs Vital signs: Vital Signs - 8 hr 01/24/22 15:44 Pulse Rate 67 Respiratory Rate 18 Blood Pressure 111/72 Pulse Oximetry 97 Oxygen Delivery Method Room Air MDM - Nausea/Vomiting/Diarrhea Lab Data Labs: Lab Results 01/24/22 01/24/22 01/24/22 Range/Units 12:11 13:29 15:30 Urine Color Yellow Urine Appearance Clear Urine pH 6.0 (4.5-8.0) Ur Specific [place] 1.020 (1.000-1.035) Urine Protein 1+ H (Negative) Urine Glucose (UA) Trace H (Negative) g/dL Urine Ketones Negative (NEGATIVE) Urine Occult Blood Negative (Negative) Urine Nitrate Negative (Negative) Urine Bilirubin Negative (NEGATIVE) Urine Urobilinogen 0.2 (0.2) E.U./dL Ur Leukocyte Esterase Negative (NEGATIVE) Urine RBC 0-1/hpf (0-5/HPF) Urine WBC 0-1/hpf (0-5/HPF) Urine Bacteria Few (2-10) H (None) Urine Mucus 1+ H (Negative) Ur Culture Indicated? Cult not indicated Stl C. cayetanensis PCR Not detected (Not Detect) Stool Rotavirus (PCR) Not detected (Not Detect) Stool Adenovirus (PCR) Not detected (Not Detect) Stool Astrovirus (PCR) Not detected (Not Detect) Stool Cryptosporidium PCR Not detected (Not Detect) Stl E.coli Shiga Tox PCR Not detected (Not Detect) St Sh/Enteroin Ecoli PCR Not detected (Not Detect) Stool E coli O157 PCR Not Reportable Stl Enterotoxigenic E PCR Detected H (Not Detect) Stool EPEC (PCR) Detected H (Not Detect) Stl E. histolytica PCR Not detected (Not Detect) Stool Giardia Lamblia PCR Not detected (Not Detect) Stool Sapovirus (PCR) Not detected (Not Detect) Stl P. shigelloides PCR Not detected (Not Detect) St Y.enterocolitica PCR Not detected (Not Detect) Stool Vibrio (PCR) Not detected (Not Detect) Stl Vibrio cholerae PCR Not detected (Not Detect) Stl Enteroaggr Ecoli PCR Detected H (Not Detect) Stl Norovirus GI/GII PCR Not detected (Not Detect) Chlamy pneumoniae PCR Not detected (Not Detect) Adenovirus (PCR) Not detected (Not Detect) B. pertussis DNA (PCR) Not detected (Not Detecte) B.parapertussis DNA PCR Not detected (Not Detecte) Campylobacter (PCR) Not detected (Not Detect) C. difficile Tox (PCR) Not detected (Not Detect) Coronavirus OC43 (PCR) Not detected (Not Detect) Coronavirus HKU1 (PCR) Not detected (Not Detect) Coronavirus 229E (PCR) Not detected (Not Detect) SARS-CoV-2 (PCR) Not detected (Not Detecte) Coronavirus NL63 (PCR) Not detected (Not Detect) Human Metapneumovir PCR Not detected (Not Detect) Influenza Type A (PCR) Not detected (Not Detect) Influenza Type B (PCR) Not detected (Not Detect) M. pneumoniae (PCR) Not detected (Not Detect) Parainfluenza 1 (PCR) Not detected (Not Detect) Parainfluenza 2 (PCR) Not detected (Not Detect) Parainfluenza 3 (PCR) Not detected (Not Detect) Parainfluenza 4 (PCR) Not detected (Not Detect) RSV (PCR) Not detected (Not Detect) Entero/Rhino (PCR) Not detected (Not Detect) Salmonella (PCR) Not detected (Not Detect) MDM Narrative Medical decision making narrative: Differential diagnosis to consider but not limited to viral upper respiratory infection versus viral gastroenteritis versus infectious diarrhea versus colitis. I discussed plan with patient to notify him of the results of the GI panel when results are finalized. I urged the patient to begin using Imodium as patient is afebrile and does not have any blood in his stool. Additionally, encouraged the patient to stay hydrated with Pedialyte and watered down Gatorade to help keep his electrolyte levels up. Patient expresses understanding and agrees to plan. Strict return precautions were discussed with the patient prior to discharge. Discharge Plan Departure Patient Disposition: Home Clinical Impression: Vomiting, Diarrhea Instructions: DI for Vomiting -- Adult Activity Restrictions/Additional Instructions: *You have been diagnosed with vomiting, diarrhea *What to do: *Please continue to take your regular medications as directed. [ ] New medication prescriptions sent to your pharmacy: [ ] [ ] New medication written as a paper prescription [X] No new medications given You were evaluated in the emergency department today for vomiting and diarrhea. We will notify you of the results of the GI panel, your respiratory panel and urinalysis were within normal limits today. Please use Imodium to help alleviate your symptoms. It is important to discontinue use of Imodium if he develops fever or blood in your stool. Please ensure that your stay well hydrated throughout the day with Pedialyte and watered down Gatorade. I recommend following up with the primary care provider within the next few days for further evaluation and management. Please do not hesitate to return to the emergency department if you experience fever, persistent vomiting, blood in your stool, abdominal pain, or any other concerning symptoms. *Please follow up with your primary care provider in 2-3 days, call for an appointment. Let them know you were seen in the Emergency Department and that we ask that you be seen in follow up. We will electronically transmit a record of today's note if your PCP is in our system *If you do not have a primary care provider please contact the [facility] Resource line at [phone]. They will ask some questions about your medical history and help get you set up with a doctor in the community. *Return to Emergency Department if you should have any new, worsening or concerning symptoms, such as fever greater than 101 F, shaking chills, worsening pain, persistent vomiting or other bothersome symptoms. Prescriptions: No Action No Known Home Medications Referrals: Vaibhav Velazquez DO [Primary Care Provider] - Stand Alone Forms: Work Release Note Visit Report Forms: Patient Portal/API
[2022-01-24 15:44] VITALS: BP 111/72; PULSE 67; RESP 18; O2SAT 97
[2022-01-24 20:10] LABS: Campylobacter Not Detected (Not Detect); Clostridium difficile toxin AB Not Detected (Not Detect); Enteroaggregative E.coli Detected (Not Detect); Enteropathogenic E.coli Detected (Not Detect); Plesiomonsa shigelloides Not Detected (Not Detect); Salmonella Not Detected (Not Detect); Vibrio Not Detected (Not Detect); Vibrio cholerae Not Detected (Not Detect); Yersinia enterocolitica Not Detected (Not Detect)
[2022-01-24 20:11] LABS: Adenovirus F 40/41 Not Detected (Not Detect); Astrovirus Not Detected (Not Detect); Cryptosporidium Not Detected (Not Detect); Cyclospora cayetanensis Not Detected (Not Detect); Entamoeba histolytica Not Detected (Not Detect); Enterotoxigenic E.coli It/st Detected (Not Detect); Giardia lamblia Not Detected (Not Detect); Norovirus GI/GII Not Detected (Not Detect); Rotavirus A Not Detected (Not Detect); Sapovirus Not Detected (Not Detect); Shiga-like toxin-prod E.coli Not Detected (Not Detect); Shigella/Enteroinvasive E.coli Not Detected (Not Detect)
== END 2022-01-24 15:57 | disposition home or self-care (01) ==
PROVIDERS: Emergency Medicine; Emergency Provider Physician Assistant; PCP Emergency Medicine
DX: R11.10 Vomiting, unspecified (principal); R19.7 Diarrhea, unspecified; Z20.822 Contact with and (suspected) exposure to COVID-19
CPT/HCPCS: 81001; 87507; 87633; 99282

== ENCOUNTER 2022-06-27 20:47 | Emergency (ER) | payer OTHER, SELFPAY ==
[2022-06-27 20:47] VITALS: BP 134/64; PULSE 67; RESP 16; TEMP 36.4; O2SAT 97; BMI 25.0
--- NOTE | 2022-06-27 21:20 | ED_ITS ---
HPI - Psych <Christoph Link DO - Last Filed: 06/28/22 23:36> General Chief Complaint: Psychiatric Symptoms Stated Complaint: SI Time Seen by Provider: 06/27/22 20:54 Source: patient and EMS Mode of arrival: EMS History of Present Illness HPI Narrative: Patient is a 37-year-old male. Does have a history of anxiety. Does not currently take any medications. Is here for evaluation of suicidal ideation. He states that the other day he went to the dentist for a routine cleaning when he found out that he had a cyst in his upper jaw that he states requires follow- up and possibly very extensive surgery. [facility]. He became very anxious and agitated from this. It was also some reports about a picture that he sent to a female and complications with regard to this. He started become suicidal today. He stated that if he were to kill himself he would be assured himself and he does have access to guns. He is not tried to hurt himself in the past. He is here in the emergency department seeking help for his anxiety and suicidal thoughts. Related Data Home Medications Medication Instructions Recorded Confirmed No Known Home Medications 05/01/19 05/01/19 Allergies Allergy/AdvReac Type Severity Reaction Status Date / Time shellfish derived Allergy Verified 05/30/21 20:39 Review of Systems <DO Elma Byrd Last Filed: 06/28/22 23:36> Cardiovascular Comments: No chest pain Respiratory Comments: No shortness of breath Gastrointestinal Comments: No abdominal pain Psychiatric Psychiatric: Reports system reviewed and no additional complaints, except as documented Patient History <DO Elma Byrd Last Filed: 06/28/22 23:36> Medical History (Updated 06/28/22 @ 16:13 by Yesi Sutton DO) Depression Suicidal ideation Surgical History No pertinent past surgical history Social History Smoking Status: Current every day smoker alcohol intake: former substance use type: marijuana Smoking Status: Current every day smoker alcohol intake frequency: other Substance Use Type: marijuana Exam <DO Elma Byrd Last Filed: 06/28/22 23:36> Initial Vital Signs Initial Vital Signs: Vital Signs Temperature 97.6 F 06/27/22 20:47 Pulse Rate 67 06/27/22 20:47 Respiratory Rate 16 06/27/22 20:47 Blood Pressure 134/64 06/27/22 20:47 Pulse Oximetry 97 06/27/22 20:47 Oxygen Delivery Method 06/27/22 20:47 Const General: comfortable HENMT Head: normal to inspection and normocephalic Resp Effort & Inspection: normal respiratory effort Cardio Rate: regular rate GI Inspection: normal to inspection Skin General: no rashes or lesions noted Neuro General: patient alert, patient awake, patient oriented x3 and moves all extremities Extrem General: normal to inspection <Yesi Sutton DO - Last Filed: 06/28/22 18:29> Initial Vital Signs Initial Vital Signs: Vital Signs Temperature 97.6 F 06/27/22 20:47 Pulse Rate 67 06/27/22 20:47 Respiratory Rate 16 06/27/22 20:47 Blood Pressure 134/64 06/27/22 20:47 Pulse Oximetry 97 06/27/22 20:47 Oxygen Delivery Method 06/27/22 20:47 Course <Christoph Link DO - Last Filed: 06/28/22 23:36> Orders Ordered: Discontinued Medications Lorazepam (Lorazepam 0.5 Mg Tablet) 1 mg PO NOW ONE Stop: 06/27/22 22:05 Last Admin: 06/27/22 22:08 Dose: 1 mg Documented By: RB Lorazepam (Lorazepam 0.5 Mg Tablet) 1 mg PO NOW ONE Stop: 06/28/22 10:32 Last Admin: 06/28/22 10:35 Dose: 1 mg Documented By: CHAN Lorazepam (Lorazepam 0.5 Mg Tablet) 1 mg PO NOW ONE Stop: 06/28/22 18:57 Last Admin: 06/28/22 19:02 Dose: 1 mg Documented By: MESERET Vital Signs Vital signs: Vital Signs - 8 hr 06/28/22 22:58 Pulse Rate 66 Respiratory Rate 18 Blood Pressure 140/81 Pulse Oximetry 99 Oxygen Delivery Method Room Air <Yesi Sutton DO - Last Filed: 06/28/22 18:29> Orders Ordered: Discontinued Medications Lorazepam (Lorazepam 0.5 Mg Tablet) 1 mg PO NOW ONE Stop: 06/27/22 22:05 Last Admin: 06/27/22 22:08 Dose: 1 mg Documented By: RB Lorazepam (Lorazepam 0.5 Mg Tablet) 1 mg PO NOW ONE Stop: 06/28/22 10:32 Last Admin: 06/28/22 10:35 Dose: 1 mg Documented By: SHELLEY Lorazepam (Lorazepam 0.5 Mg Tablet) 1 mg PO NOW ONE Stop: 06/28/22 18:57 Last Admin: 06/28/22 19:02 Dose: 1 mg Documented By: MESERET Vital Signs Vital signs: Vital Signs - 8 hr 06/28/22 22:58 Pulse Rate 66 Respiratory Rate 18 Blood Pressure 140/81 Pulse Oximetry 99 Oxygen Delivery Method Room Air MDM - Psych <Christoph Link DO - Last Filed: 06/28/22 23:36> Lab Data Attestation: I reviewed the patient's lab results. Result diagrams: 06/27/22 21:33 06/27/22 21:33 Labs: Lab Results 06/27/22 06/27/22 06/27/22 Range/Units 21:19 21:19 21:33 WBC 9.7 (4.5-11.0) X10^3/uL RBC 4.61 (4.5-5.9) X10^6/uL Hgb 13.6 (13.5-17.5) g/dL Hct 39.0 L (41-53) % MCV 84.6 (80-100) fL MCH 29.4 (26-34) PG MCHC 34.8 (30-36) % RDW 13.1 (11.6-14.8) % Plt Count 227 (150-400) X10^3/uL Neut % (Auto) 57.2 (50-75) % Lymph % (Auto) 30.3 (25-40) % Davidson % (Auto) 10.9 (3-14) % Eos % (Auto) 0.9 L (2-4) % Baso % (Auto) 0.7 (0-2) % Neut # (Auto) 5500 (9455-9181) /uL Lymph # (Auto) 2900 (0756-8180) /uL Davidson # (Auto) 1100 H (0-900) /uL Eos # (Auto) 100 (0-450) /uL Baso # (Auto) 100 (0-100) /uL Sodium (137-145) mmol/L Potassium (3.4-5.1) mmol/L Chloride (98-107) mmol/L Carbon Dioxide (22-32) mmol/L BUN (9-20) mg/dL Creatinine (0.66-1.25) mg/dL Estimated GFR (>60) mL/min BUN/Creatinine Ratio (6-22) Glucose (70-100) mg/dL Calcium (8.4-10.2) mg/dL Total Bilirubin (0.2-1.3) mg/dL AST (17-59) IU/L ALT (<50) IU/L Alkaline Phosphatase (38-126) U/L Total Protein (6.3-8.2) g/dL Albumin (3.5-5.0) g/dL Globulin (1.7-4.1) g/dL Albumin/Globulin Ratio (1.0-2.8) Lipase (23-300) U/L TSH (0.47-4.68) uIU/mL U Opiates 300ng/mL cut Negative (Negative) Ur Oxycodone Screen Negative (Negative) Urine Methadone Screen Negative (Negative) Acetaminophen (10-30) ug/mL Ur Barbiturates Screen Negative (Negative) U Tricyclic Antidepress Negative (Negative) Ur Phencyclidine Scrn Negative (Negative) Ur Amphetamines Screen Negative (Negative) U Methamphetamines Scrn Negative (Negative) Ur MDMA Scrn (Ecstasy) Negative (Negative) U Benzodiazepines Scrn Negative (Negative) Urine Cocaine Screen Negative (Negative) U Marijuana (THC) Screen Positive H (Negative) Ethyl Alcohol ( - 10) mg/dL SARS-CoV-2 (PCR) Negative (Negative) 06/27/22 06/27/22 Range/Units 21:33 21:33 WBC (4.5-11.0) X10^3/uL RBC (4.5-5.9) X10^6/uL Hgb (13.5-17.5) g/dL Hct (41-53) % MCV (80-100) fL MCH (26-34) PG MCHC (30-36) % RDW (11.6-14.8) % Plt Count (150-400) X10^3/uL Neut % (Auto) (50-75) % Lymph % (Auto) (25-40) % Davidson % (Auto) (3-14) % Eos % (Auto) (2-4) % Baso % (Auto) (0-2) % Neut # (Auto) (1181-7195) /uL Lymph # (Auto) (7574-9020) /uL Davidson # (Auto) (0-900) /uL Eos # (Auto) (0-450) /uL Baso # (Auto) (0-100) /uL Sodium 137 (137-145) mmol/L Potassium 3.8 (3.4-5.1) mmol/L Chloride 103 (98-107) mmol/L Carbon Dioxide 25 (22-32) mmol/L BUN 15 (9-20) mg/dL Creatinine 1.10 (0.66-1.25) mg/dL Estimated GFR > 60 (>60) mL/min BUN/Creatinine Ratio 13.6 (6-22) Glucose 95 (70-100) mg/dL Calcium 9.0 (8.4-10.2) mg/dL Total Bilirubin 0.6 (0.2-1.3) mg/dL AST 23 (17-59) IU/L ALT 24 (<50) IU/L Alkaline Phosphatase 43 (38-126) U/L Total Protein 7.6 (6.3-8.2) g/dL Albumin 4.6 (3.5-5.0) g/dL Globulin 3.0 (1.7-4.1) g/dL Albumin/Globulin Ratio 1.5 (1.0-2.8) Lipase 116 (23-300) U/L TSH 1.70 (0.47-4.68) uIU/mL U Opiates 300ng/mL cut (Negative) Ur Oxycodone Screen (Negative) Urine Methadone Screen (Negative) Acetaminophen < 10 (10-30) ug/mL Ur Barbiturates Screen (Negative) U Tricyclic Antidepress (Negative) Ur Phencyclidine Scrn (Negative) Ur Amphetamines Screen (Negative) U Methamphetamines Scrn (Negative) Ur MDMA Scrn (Ecstasy) (Negative) U Benzodiazepines Scrn (Negative) Urine Cocaine Screen (Negative) U Marijuana (THC) Screen (Negative) Ethyl Alcohol < 10 ( - 10) mg/dL SARS-CoV-2 (PCR) (Negative) MDM Narrative Medical decision making narrative: Patient is medically cleared. Social work consult placed. Care turned over to day provider change of shift follow-up and disposition. Herman 06/28/22. Patient signed out to myself. Patient seen and evaluated by myself. Patient currently voluntary and DISK RECORDIST consult in place. Patient medically cleared. He is very focused on the area on his cheek. He feels safe when he is with us but is unable to contract for safety at home does have guns at home. [facility] and with [facility] care team. Patient is opted by Madelin Marin for transfer to [facility] for treatment. Patient signed out while awaiting transportation. Dr link: Assumed care patient. Has been stable. Will proceed with transport. <Yesi Sutton, DO - Last Filed: 06/28/22 18:29> Lab Data Labs: Lab Results 06/27/22 06/27/22 06/27/22 Range/Units 21:19 21:19 21:33 WBC 9.7 (4.5-11.0) X10^3/uL RBC 4.61 (4.5-5.9) X10^6/uL Hgb 13.6 (13.5-17.5) g/dL Hct 39.0 L (41-53) % MCV 84.6 (80-100) fL MCH 29.4 (26-34) PG MCHC 34.8 (30-36) % RDW 13.1 (11.6-14.8) % Plt Count 227 (150-400) X10^3/uL Neut % (Auto) 57.2 (50-75) % Lymph % (Auto) 30.3 (25-40) % Davidson % (Auto) 10.9 (3-14) % Eos % (Auto) 0.9 L (2-4) % Baso % (Auto) 0.7 (0-2) % Neut # (Auto) 5500 (9568-5639) /uL Lymph # (Auto) 2900 (7919-2356) /uL Davidson # (Auto) 1100 H (0-900) /uL Eos # (Auto) 100 (0-450) /uL Baso # (Auto) 100 (0-100) /uL Sodium (137-145) mmol/L Potassium (3.4-5.1) mmol/L Chloride (98-107) mmol/L Carbon Dioxide (22-32) mmol/L BUN (9-20) mg/dL Creatinine (0.66-1.25) mg/dL Estimated GFR (>60) mL/min BUN/Creatinine Ratio (6-22) Glucose (70-100) mg/dL Calcium (8.4-10.2) mg/dL Total Bilirubin (0.2-1.3) mg/dL AST (17-59) IU/L ALT (<50) IU/L Alkaline Phosphatase (38-126) U/L Total Protein (6.3-8.2) g/dL Albumin (3.5-5.0) g/dL Globulin (1.7-4.1) g/dL Albumin/Globulin Ratio (1.0-2.8) Lipase (23-300) U/L TSH (0.47-4.68) uIU/mL U Opiates 300ng/mL cut Negative (Negative) Ur Oxycodone Screen Negative (Negative) Urine Methadone Screen Negative (Negative) Acetaminophen (10-30) ug/mL Ur Barbiturates Screen Negative (Negative) U Tricyclic Antidepress Negative (Negative) Ur Phencyclidine Scrn Negative (Negative) Ur Amphetamines Screen Negative (Negative) U Methamphetamines Scrn Negative (Negative) Ur MDMA Scrn (Ecstasy) Negative (Negative) U Benzodiazepines Scrn Negative (Negative) Urine Cocaine Screen Negative (Negative) U Marijuana (THC) Screen Positive H (Negative) Ethyl Alcohol ( - 10) mg/dL SARS-CoV-2 (PCR) Negative (Negative) 06/27/22 06/27/22 Range/Units 21:33 21:33 WBC (4.5-11.0) X10^3/uL RBC (4.5-5.9) X10^6/uL Hgb (13.5-17.5) g/dL Hct (41-53) % MCV (80-100) fL MCH (26-34) PG MCHC (30-36) % RDW (11.6-14.8) % Plt Count (150-400) X10^3/uL Neut % (Auto) (50-75) % Lymph % (Auto) (25-40) % Davidson % (Auto) (3-14) % Eos % (Auto) (2-4) % Baso % (Auto) (0-2) % Neut # (Auto) (3304-6419) /uL Lymph # (Auto) (2743-8259) /uL Davidson # (Auto) (0-900) /uL Eos # (Auto) (0-450) /uL Baso # (Auto) (0-100) /uL Sodium 137 (137-145) mmol/L Potassium 3.8 (3.4-5.1) mmol/L Chloride 103 (98-107) mmol/L Carbon Dioxide 25 (22-32) mmol/L BUN 15 (9-20) mg/dL Creatinine 1.10 (0.66-1.25) mg/dL Estimated GFR > 60 (>60) mL/min BUN/Creatinine Ratio 13.6 (6-22) Glucose 95 (70-100) mg/dL Calcium 9.0 (8.4-10.2) mg/dL Total Bilirubin 0.6 (0.2-1.3) mg/dL AST 23 (17-59) IU/L ALT 24 (<50) IU/L Alkaline Phosphatase 43 (38-126) U/L Total Protein 7.6 (6.3-8.2) g/dL Albumin 4.6 (3.5-5.0) g/dL Globulin 3.0 (1.7-4.1) g/dL Albumin/Globulin Ratio 1.5 (1.0-2.8) Lipase 116 (23-300) U/L TSH 1.70 (0.47-4.68) uIU/mL U Opiates 300ng/mL cut (Negative) Ur Oxycodone Screen (Negative) Urine Methadone Screen (Negative) Acetaminophen < 10 (10-30) ug/mL Ur Barbiturates Screen (Negative) U Tricyclic Antidepress (Negative) Ur Phencyclidine Scrn (Negative) Ur Amphetamines Screen (Negative) U Methamphetamines Scrn (Negative) Ur MDMA Scrn (Ecstasy) (Negative) U Benzodiazepines Scrn (Negative) Urine Cocaine Screen (Negative) U Marijuana (THC) Screen (Negative) Ethyl Alcohol < 10 ( - 10) mg/dL SARS-CoV-2 (PCR) (Negative) MDM Narrative Medical decision making narrative: Patient is medically cleared. Social work consult placed. Care turned over to day provider change of shift follow-up and disposition. Herman 06/28/22. Patient signed out to myself. Patient seen and evaluated by myself. Patient currently voluntary and DISK RECORDIST consult in place. Patient medically cleared. He is very focused on the area on his cheek. He feels safe when he is with us but is unable to contract for safety at home does have guns at home. He is seen through [facility] and with [facility] health care team. Patient is opted by Madelin Marin for transfer to [facility] unit for treatment. Patient signed out while awaiting transportation. Discharge Plan Departure Patient Disposition: [facility] Clinical Impression: Depression with suicidal ideation Prescriptions: No Action No Known Home Medications Referrals: Vaibhav Velazquez DO [Physician] -
[2022-06-27 21:36] LABS: UR Morphine/Opiate cutoff 300 Negative (Negative); Ur Creatinine Normal (Normal); Ur Specific Gravity Normal (Normal); Urine Amphetamines Negative (Negative); Urine Barbiturates Negative (Negative); Urine Benzodiazepines Negative (Negative); Urine Cocaine Negative (Negative); Urine MDMA Negative (Negative); Urine Methadone Negative (Negative); Urine Methamphetamines Negative (Negative); Urine Oxycodone Negative (Negative); Urine Phencyclidine Negative (Negative); Urine Tetrahydrocannabinol Positive (Negative); Urine Tricyclic Antidepressant Negative (Negative); Urine pH Normal (Normal)
[2022-06-27 21:45] LABS: Add Manual Diff / Slide Review NO; Basophils Absolute Auto 100 /uL (0-100); Basophils Percent Auto 0.7 % (0-2); Eosinophils Absolute Auto 100 /uL (0-450); Eosinophils Percent Auto 0.9 % (2-4); Hemoglobin 13.6 g/dL (13.5-17.5); Lymphocytes Absolute Auto 2900 /uL (1100-4500); Lymphocytes Percent Auto 30.3 % (25-40); Mean Corpuscular HGB Conc 34.8 % (30-36); Mean Corpuscular Hemoglobin 29.4 PG (26-34); Mean Corpuscular Volume 84.6 fL (80-100); Monocytes Absolute Auto 1100 /uL (0-900); Monocytes Percent Auto 10.9 % (3-14); Neutrophils Absolute Auto 5500 /uL (1500-7000); Neutrophils Percent Auto 57.2 % (50-75); Platelet Count 227 X10^3/uL (150-400); Red Blood Cell Count 4.61 X10^6/uL (4.5-5.9); Red Cell Distribution Width 13.1 % (11.6-14.8); White Blood Cell Count 9.7 X10^3/uL (4.5-11.0)
[2022-06-27 21:46] LABS: COVID19 -Nasal RAPID Negative (Negative)
[2022-06-27 21:52] LABS: Acetaminophen < 10 ug/mL (10-30); Alanine Aminotransferase 24 IU/L (<50); Albumin 4.6 g/dL (3.5-5.0); Albumin Globulin Ratio 1.5 (1.0-2.8); Alkaline Phosphatase 43 U/L (38-126); Aspartate Aminotransferase 23 IU/L (17-59); BUN Creatinine Ratio 13.6 (6-22); Bilirubin Total 0.6 mg/dL (0.2-1.3); Blood Urea Nitrogen 15 mg/dL (9-20); Carbon Dioxide 25 mmol/L (22-32); Chloride 103 mmol/L (98-107); Estimated Glomerular Filt Rate > 60 mL/min (>60); Ethanol (ETOH) < 10 mg/dL; Glucose 95 mg/dL (70-100); HEMOLYSIS < 15 (0-50); Lipase 116 U/L (23-300); Potassium 3.8 mmol/L (3.4-5.1); Sodium 137 mmol/L (137-145); Total Protein 7.6 g/dL (6.3-8.2)
[2022-06-27] MEDS: LORazepam 0.5 MG TABLET 1 MG PO (22:08)
[2022-06-28 06:05] VITALS: BP 129/88; PULSE 75; RESP 14; O2SAT 99
--- NOTE | 2022-06-28 09:28 | PC.NURSE ---
Patient concerned about letting Jaelyn Ferrari and mother Rissa.
--- NOTE | 2022-06-28 09:33 | PC.NURSE ---
Connected with [facility] at patients request [phone]. Informed him patient was seeking medical care and to please notify his leads/boss. [facility]ega Confirmed he would take care of that for patient.
--- NOTE | 2022-06-28 09:36 | PC.NURSE ---
Mother notified that he is at hospital at patients request. Jaelyn Teresa [phone] unreachable at this time
[2022-06-28] MEDS: LORazepam 0.5 MG TABLET 1 MG PO ×2 (10:35→19:02)
--- NOTE | 2022-06-28 10:39 | PC.NURSE ---
patient provided with coffee and water. Medicated with ativan, per patient request. they gave me something last night that really helped take the edge off Patient had been passing in room feeling little more anxious
[2022-06-28 11:24] VITALS: BP 150/64; PULSE 64; RESP 18; TEMP 36.8; O2SAT 98
--- NOTE | 2022-06-28 13:03 | CM.SWNOTE ---
NETWORK LIAISON - Him Specialist Assessment NETWORK LIAISON - Him Specialist Assessment Start: 06/28/22 12:36 Freq: Status: Active Protocol: Document 06/28/22 12:36 TM (Rec: 06/28/22 13:03 TM [id number]) NETWORK LIAISON/Him Specialist Assessment Time Spent with Patient Start date 06/28/22 Visit Start Time 12:10 End date 06/28/22 Visit End Time 12:40 Mental Health Screening Include Onset, Duration, Intensity Presenting Problem Pt presents to the ED with suicidal ideation. Pt reports that his plan was to shoot himself. Pt does have access to guns at home. Pt states, I just snapped. I am overwhelmed and frustrated. 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 Pt reports that historically, his providers have made him feel crazy about his pain because they could never identify a cause. Pt feels relief that a cause has been identified but hopeless that the [facility] medical system will help him schedule surgery and follow up. Pt reports feeling frustrated with the [facility] and like he is not getting the help that he needs . Current Behavioral Health Provider(s) Dr. Aleida Segal, PHD, [facility], Provider, Ph. # [facility]. Hx Mental Health and Chemical Pt reports that he has been Dependency diagnosed with PTSD, anxiety, depression, and panic attacks. Psychiatric Hospitalizations (date(s)/ Pt reports that he has been location) psychiatrically hospitalized in the past at the [facility] and [facility]. 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 Mental Status Orientation (Person/Place/Time) Oriented to person, place, time. Stated Mood Overwhelmed, hopeless. Affect (Congruent with Mood?) Broad. Thought Content - Specify/Describe Pt is hyperfocused on his Obsessions, Delusions, Hallucinations recent diagnosis and has trouble deviating from that topic to discuss mental health . Pt connects physiological problems with mental health crisis. Denies visual or auditory hallucinations. Thought Processes (Vdfpxyn-Fqnnusam-Czbg tangential at times but Izowyqvk-Uutefwnz-Tcngewuwos- overall coherent. Oceljzkqryqbmo-Kybwwfk-Szpnexjctnqg- Thought Blocking) Speech (Lvjjzo-Mgna-Kajmnes-Rapid-Soft- Normal. Loud-Pressured) Motor (Lvocvk-Vvuosdypl-Niyw-Other) Normal. Insight (Bskd-Fhes-Vsyx/Limited) Fair. Judgement (Bbql-Njyj-Fkrw/Limited) Fair. Impulse Control (Adequate-Impaired) Fair. Memory (Cglroaskv-Cvowby-Ngytrw, not tested. Impaired-Intact) Concentration (Intact-Impaired) intact. Attention (Intact-Impaired) intact. Behavior (Appropriate-Inappropriate) appropriate. Risk Assessment Suicidal Ideation (Plan) No: Pt states Homicidal Ideation (Plan) No Comment I am not suicidal now but [facility] I would be. Intervention Intervention SW met pt at bedside to initiate assessment. Pt is highly preoccupied with his medical issues and his perceived lack of help provided by the [facility]. Pt somewhat tangential throughout our conversation. Keeps returning to the fact that he has been made to feel crazy by the [facility] for his pain. Pt reports that he is glad he knows that his medical problem is now but he is upset because he does not think the [facility] is providing help quickly enough - pt reports a month wait time to discuss with his PCP. Pt reports that he just snapped last night and felt frustrated and hopeless regarding his situation. Pt reports that he talked to several friends who recommended that he call the crisis line. Pt reports that he needs to go to [facility], the inpatient psychiatric facility at the [facility]. SW explains that she will make referrals to appropriate inpatient settings but cannot guarantee that the [facility] will have availability and/or accept pt. Pt reports that he will not go any where else besides the [facility]. Plan RA Plan SW called the [facility] line [phone] and left a voicemail requesting a call back to discuss their referral process .
--- NOTE | 2022-06-28 13:50 | CM.SWNOTE ---
Addendum entered by JAVIER Hicks 06/28/22 15:35: FLETCHER received a return call from Luis after she did an intake call with the pt. Luis reports that they have accepted the pt. They will arrange transport, which could take a few hours. Luis will call back with an ETA soon. The accepting provider at the [facility] is Dr. Madelin Marin. FLETCHER provided update to ED Provider and patient. JAVIER Hicks Original Note: FLETCHER ED UPDATE FLETCHER faxed referral to [facility] inpatient psych at fax . FLETCHER received a call from Luis at the [facility]. FLETCHER staffed case and referral with Luis, who reports that pt was last inpatient there in 2019. Luis notes that [facility] and left a detailed message regarding his SI and access to weapons. Luis reports that she will review referral and call SW back with an update noel. JAVIER Hicks
--- NOTE | 2022-06-28 15:38 | PC.NURSE ---
Provider okayed pt to have personal cell phone in room.
--- NOTE | 2022-06-28 15:42 | PC.NURSE ---
pt pacing back and forth in room making multiple phone calls to his work and to his dentist
--- NOTE | 2022-06-28 15:45 | PC.NURSE ---
Pt standing in room continuing to make phone calls to his work. Pt attempting to make arrangements for missed work. Will continue to monitor pt and phone use to ensure his phone is not causing increased anxiety.
--- NOTE | 2022-06-28 17:48 | PC.NURSE ---
Pts paper medical records given to patients mother per pts request
--- NOTE | 2022-06-28 20:02 | PC.NURSE ---
Pt sitting calmly in room asking for a cup of coffee. Updated on plan of care.
[2022-06-28 22:58] VITALS: BP 140/81; PULSE 66; RESP 18; O2SAT 99
== END 2022-06-28 22:25 | disposition short-term general hospital (02) ==
PROVIDERS: Emergency Medicine; Emergency Provider Emergency Medicine
DX: F32.A Depression, unspecified (principal); R45.851 Suicidal ideations; Z20.822 Contact with and (suspected) exposure to COVID-19
CPT/HCPCS: 36415; 80053; 80305; 80320; 80329; 83690; 84443; 85025; 87635; 99284; C9803; G0480

== ENCOUNTER 2023-07-10 12:25 | Emergency (ER) | payer OTHER, SELFPAY ==
[2023-07-10 12:32] VITALS: BP 147/90; PULSE 65; RESP 14; TEMP 36.7; O2SAT 99; BMI 25.7
--- NOTE | 2023-07-10 12:53 | PC.NURSE ---
Safety Tray for lunch provided
[2023-07-10 12:55] LABS: Add Manual Diff / Slide Review NO; Basophils Absolute Auto 0 /uL (0-100); Basophils Percent Auto 0.5 % (0-2); Eosinophils Absolute Auto 100 /uL (0-450); Eosinophils Percent Auto 1.3 % (2-4); Hematocrit 44.1 % (41-53); Lymphocytes Absolute Auto 1700 /uL (1100-4500); Lymphocytes Percent Auto 26.7 % (25-40); Mean Corpuscular HGB Conc 33.9 % (30-36); Mean Corpuscular Hemoglobin 29.4 PG (26-34); Mean Corpuscular Volume 86.7 fL (80-100); Monocytes Absolute Auto 600 /uL (0-900); Monocytes Percent Auto 8.6 % (3-14); Neutrophils Absolute Auto 4000 /uL (1500-7000); Neutrophils Percent Auto 62.9 % (50-75); Platelet Count 221 X10^3/uL (150-400); Red Blood Cell Count 5.08 X10^6/uL (4.5-5.9); Red Cell Distribution Width 13.7 % (11.6-14.8); White Blood Cell Count 6.4 X10^3/uL (4.5-11.0)
[2023-07-10 13:06] LABS: COVID19 -Nasal RAPID Negative (Negative)
--- NOTE | 2023-07-10 13:11 | PC.NURSE ---
SALES DEVELOPMENT REPRESENTATIVE at bedside
[2023-07-10 13:38] LABS: Acetaminophen < 10 ug/mL (10-30); Alanine Aminotransferase 37 IU/L (<50); Albumin 4.6 g/dL (3.5-5.0); Albumin Globulin Ratio 1.4 (1.0-2.8); Alkaline Phosphatase 36 U/L (38-126); Aspartate Aminotransferase 29 IU/L (17-59); BUN Creatinine Ratio 18.8 (6-22); Bilirubin Total 0.8 mg/dL (0.2-1.3); Blood Urea Nitrogen 15 mg/dL (9-20); Calcium 9.6 mg/dL (8.4-10.2); Carbon Dioxide 27 mmol/L (22-32); Chloride 99 mmol/L (98-107); Estimated Glomerular Filt Rate > 60 mL/min (>60); Ethanol (ETOH) < 10 mg/dL; Globulin 3.3 g/dL (1.7-4.1); Glucose 101 mg/dL (70-100); HEMOLYSIS < 15 (0-50); Potassium 4.2 mmol/L (3.4-5.1); Salicylate < 1.0 mg/dL (<20); Sodium 134 mmol/L (137-145); Total Protein 7.9 g/dL (6.3-8.2)
[2023-07-10 13:55] LABS: Free T4, Direct Thyroxine 1.15 ng/dL (0.78-2.19)
[2023-07-10 13:56] VITALS: O2SAT 99
[2023-07-10 13:57] VITALS: BP 123/56; PULSE 54; O2SAT 98
[2023-07-10 14:09] LABS: Thyroid Stimulating Hormone 1.19 uIU/mL (0.47-4.68)
[2023-07-10 14:30] LABS: UR Morphine/Opiate cutoff 300 Negative (Negative); Ur Creatinine Normal (Normal); Ur Specific Gravity Normal (Normal); Urine Amphetamines Negative (Negative); Urine Barbiturates Negative (Negative); Urine Benzodiazepines Negative (Negative); Urine Cocaine Negative (Negative); Urine MDMA Negative (Negative); Urine Methadone Negative (Negative); Urine Methamphetamines Negative (Negative); Urine Oxycodone Negative (Negative); Urine Phencyclidine Negative (Negative); Urine Tetrahydrocannabinol Positive (Negative); Urine Tricyclic Antidepressant Negative (Negative); Urine pH Normal (Normal)
--- NOTE | 2023-07-10 15:18 | CM.SWNOTE ---
GEOCHEMIST reviewed EMR and team status updates. Met with pt at bedside to introduce self and role. Pt found to be alert, oriented, appearing anxious and tearful. Pt presented to the ED expressing suicidal ideation and the intent to shoot himself if he were to return back to his home. 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 Pt states that precipitating factors include having just lost his job yesterday, not having any food/money, feeling hopeless, and has experienced worsening depression/PTSD symptoms over the last month. He shares that he has guns that are locked up, and is not willing to get rid of them, even though he feels strongly tempted to shoot himself. He has 1-close friend, made reference to his parents as his support system. He [facility], and is followed by them closely for outpatient group therapy and medication management. He takes Duloxitine, does not feel like it is adequate in terms of managing his symptoms. He wants this GEOCHEMIST to move forward with securing an inpt voluntary bed and transferring there from this ED. Called the [facility], spoke to their intake. They will review for acceptance. Faxed clinicals and waiting for pending ability to accept. Pt updated, who is now quite tearful and frustrated. Pt was accepting of anxiolytic meds to decrease anxiety while here in the ED. Discharge Planning/Care Management ED Psychiatric Symptoms Assessment Start: 07/10/23 12:32 Freq: Status: Active Protocol: Document 07/10/23 13:05 [facility] (Rec: 07/10/23 13:08 [facility] [id number]) Psychiatric Symptoms Assessment Symptoms/Complaint Feels Depressed Onset worsening over past month Duration Getting Worse History Of Same Yes Context Not Taking Psychiatric Medications Improves With Therapy Worsens With Nothing Details of Plan states he had a bad week. Left his job yesterday. States that his primary mental health team has been requesting he voluntarily hospitalize for the past 2 weeks but he has declined until today. States things are just worse. Very cooperative. Level of Observation Intermittent Precautions Safety precautions initiated Room placement non-ligature mitigated room Safety Interventions Explanation of process given to patient Level of Consciousness Alert,Appropriate,Awake Patient Orientation Name,Age,Birthday,Month,Date, Year,Day of Week,Place, Situation Patient Behavior/Mood Cooperative,Distractible, Fatigued,Guarded Ability to Follow Directions Excellent Patient Cognition Impaired No Affect Description Calm,Flat Patient Appearance Well Groomed Hallucination Type None Thought Process: Normal Depressive Symptoms Changes in Appetite, Hopelessness,Increased Anxiety ,Increased Fatigue,Increased Irritability,Loss of Energy, Loss of Interest in Activities ,Low Self Esteem,Sleeping More Than Usual Feelings of Hopelessness Yes Suicidal Ideation Frequent Suicide Plan No Plan Homicidal Ideation None Nausea/Vomiting None Document 07/10/23 14:28 SB (Rec: 07/10/23 14:33 SB [id number]) Psychiatric Symptoms Assessment Symptoms/Complaint Feels Depressed Onset worsening over the last 20 hours Duration Changing Over Time History Of Same Yes Context Not Taking Psychiatric Medications,Significant Life Stressor Improves With Medication,Therapy Worsens With Drug Use Associated Psychiatric Symptoms Depression,Suicidal Ideation If Self Harm Admits Thoughts of Self Harm Details of Plan Pt currently denies any SI, but has had some SI in the past few days. Pt has access to a gun and states he would use that. Level of Observation Intermittent Room placement non-ligature mitigated room Level of Consciousness Alert,Appropriate,Awake Patient Orientation Name,Age,Birthday,Month,Date, Year,Day of Week,Place, Situation Patient Behavior/Mood Anxious,Cooperative,Fatigued, Impulsive,Restless Ability to Follow Directions Good Patient Cognition Impaired No Affect Description Calm,Constricted,Depressed Patient Appearance Unkempt Hallucination Type None Thought Process: Normal Depressive Symptoms Difficulty Sleeping,Difficulty Making Decisions,Feelings of Worthlessness,Hopelessness, Isolating Oneself From Friends and Family,Low Self Esteem, Recurrent Thoughts of or Suicide Feelings of Hopelessness Yes Suicide Plan Clear,Organized,Specific,High Lethality Homicidal Ideation None Nausea/Vomiting None GEOCHEMIST - Lottery Clerk Assessment Start: 07/10/23 14:38 Freq: Status: Active Protocol: Document 07/10/23 14:39 [facility] (Rec: 07/10/23 15:18 [facility] [id number]) GEOCHEMIST/Lottery Clerk Assessment Start date 07/10/23 Visit Start Time 01:30 End date 07/10/23 Visit End Time 04:30 Total time Care Management spent on 3 hours patient visit-in minutes Presenting Problem Pt presents to the ED with suicidal ideation. He states that he has guns at home and will plan to shoot himself if he is not able to be placed back at the [facility], where he has been before, and is monitored by them outpatient. He does not feel that the Duloxatine is helping him with his depression/anxiety. Precipitating Event(s) He states that he was just fired from his job yesterday, has not been able to maintain steady employment due to PTSD. He states he has no money, no job, feels completely hopeless Patient Strengths Pt has shown persistent relience in managing his post- combat PTSD/depression/anxiety , has been utilizing the [facility] resources to assist with vocational training, DBT, and medication management. He obtained a roommate in order to decrease his financial stress, and has a close friend with whom he feels is safe and supportive. Current Behavioral Health Provider(s) Dr. Na Segal, [facility] Include Facility, Provider, Ph. # Psychiataric Services. Psych. Hx Mental Health and Chemical Pt has presented to the ED Dependency several times with SI. He states [facility], and feels that he need's their support for inpt or he fears that he will kill himself, guns in the home are his plan. Family Hx of Behavioral Abuse N/A Psychosocial information & Support Pt resides with a roommate in [facility] a home rental. He has 1-close friend that he feels he can depend on. He shares that he has been fired several times for being in conflicts with co -workers, and is struggling to feel he can maintain life demands outside of the [facility]. School/Work Fired from several jobs, is not sure how to maintain consistent employment with his anxiety and PTSD issues. Presenting Problem Suicidal ideation. Uses marijuana. Precipitating Event(s) See above. Current Behavioral Health Provider(s) [facility] Include Facility, Provider, Ph. # Rehab Facilities? ((Date(s), Location(s) N/A ) History of Withdrawal? Seizures? N/A Legal Matters - Outstanding Issues Pt is involved in a lawsuit with a recent employer who fired him for behavioral concerns, even though it was set-up with help from the [facility] vocational program for Vets with PTSD. Orientation (Person/Place/Time) Alert and oriented, tearful Stated Mood Depressed, hopeless, anxious. Affect (Congruent with Mood?) Slightly tangential, appropriate and congruent with mood. Thought Content - Specify/Describe Unable to problem solve Obsessions, Delusions, Hallucinations complicated life circumstances and intense emotions. Thought Processes (Vnvkqlq-Vexnfoqv-Ewss Appropriate, coherent. Mkxjuxxq-Sbjjrzwq-Zhuvfdwgqt- Xwitbfqclsypjl-Ibdoskt-Kwyijeiolurq- Thought Blocking) Speech (Jtzany-Yopc-Otqfcqf-Rapid-Soft- Normal Loud-Pressured) Motor (Lowmsp-Emcegxxkz-Thxr-Other) Normal, emotionally distraught . Insight (Xazr-Dfyw-Dxqu/Limited) Fair Judgement (Lkhw-Mlcc-Nwpb/Limited) Fair Impulse Control (Adequate-Impaired) Impaired Memory (Uuuqtmxhk-Hagzeu-Cmtydv, Intact Impaired-Intact) Concentration (Intact-Impaired) Impaired Attention (Intact-Impaired) Impaired Behavior (Appropriate-Inappropriate) Appropriate Suicidal Ideation (Plan) Yes: Pt plans to shoot himself with his gun. Homicidal Ideation (Plan) No Intervention Pt is seeking a voluntary placement at the [facility] psychiatric unit, where he's been before and well known by that team. He is a danger to himself with a clear plan to kill himself. RA Plan Obtain transfer to the [facility] in [facility], pending acceptance.
--- NOTE | 2023-07-10 15:43 | ED.PSYCH ---
HPI - Psych <Anamaria Manuel MD - Last Filed: 07/12/23 19:42> General Chief Complaint: Psychiatric Symptoms Stated Complaint: SI Time Seen by Provider: 07/10/23 12:35 Source: patient and EMS Mode of arrival: Ambulatory History of Present Illness HPI Narrative: 38-year-old gentleman with a history of depression, anxiety currently multiple situational abnormalities and complications that he recognizes are result of poor choices he is made along the way. Significant increase in psychosocial stressors. [facility], currently on duloxetine. [facility]. Today he simply felt like he had no reason to live and was seriously considering killing himself. Does have a gun at home. He does not describe significant physical complaints such as fevers, cough, vomiting, diarrhea, abdominal pain. 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 States that he smokes marijuana fairly regularly but no other recreational drugs. He notes that he does take his duloxetine but isn't very regular with remembering daily dosing. His next appointment with counseling and DBT therapy [facility] with an appointment scheduled for the . Related Data Home Medications Medication Instructions Recorded Confirmed duloxetine 60 mg capsule,delayed 60 mg PO DAILY 07/10/23 07/10/23 release Allergies Allergy/AdvReac Type Severity Reaction Status Date / Time shellfish derived Allergy Verified 07/10/23 14:11 Review of Systems <Anamaria Manuel MD - Last Filed: 07/12/23 19:42> Review of Systems Narrative: Pertinent positive and negative findings as per HPI Patient History <Anamaria Manuel MD - Last Filed: 07/12/23 19:42> Medical History (Updated 07/10/23 @ 15:54 by Anamaria Manuel MD) Suicidal ideation Depression Surgical History No pertinent past surgical history Social History Smoking Status: Current every day smoker alcohol intake: former substance use type: marijuana Smoking Status: Current every day smoker alcohol intake frequency: other Substance Use Type: marijuana Exam <Anamaria Manuel MD - Last Filed: 07/12/23 19:42> Initial Vital Signs Initial Vital Signs: Vital Signs Temperature 98.1 F 07/10/23 12:32 Pulse Rate 65 07/10/23 12:32 Respiratory Rate 14 07/10/23 12:32 Blood Pressure 147/90 H 07/10/23 12:32 Pulse Oximetry 99 07/10/23 12:32 Oxygen Delivery Method Room Air 07/10/23 12:32 General: Healthy appearing, emotionally upset but Able to give a complete and coherent history. Well-nourished well-developed HEENT: Moist mucous membranes, normal sclera with reactive pupils, deep circles under his eyes Respiratory: Lungs are clear to auscultation, no wheezing no rales no rhonchi. Full and symmetrical air movement Cardiac: Regular rate and rhythm no murmurs no bruits Abdomen: Soft, nontender, good bowel tones, no flank pain Skin: Warm and dry, no rashes Neurologic: Grossly neurologically intact with no obvious asymmetries or abnormalities Extremities: No trauma, well perfused Psych: Cooperative, somewhat flat affect, appropriate insight and affect. Fluent speech and appropriate thought content <Christoph Link DO - Last Filed: 07/10/23 21:42> Initial Vital Signs Initial Vital Signs: Vital Signs Temperature 98.1 F 07/10/23 12:32 Pulse Rate 65 07/10/23 12:32 Respiratory Rate 14 07/10/23 12:32 Blood Pressure 147/90 H 07/10/23 12:32 Pulse Oximetry 99 07/10/23 12:32 Oxygen Delivery Method Room Air 07/10/23 12:32 Course <Anamaria Manuel MD - Last Filed: 07/12/23 19:42> Orders Ordered: Discontinued Medications Clonazepam (Clonazepam 0.5 Mg Tablet) 1 mg PO NOW ONE Stop: 07/10/23 15:44 Last Admin: 07/10/23 15:54 Dose: 1 mg Documented By: BERNADINE Vital Signs Vital signs: Vital Signs - 8 hr 07/10/23 13:56 07/10/23 13:57 07/10/23 13:57 Pulse Rate 54 L Respiratory Rate Blood Pressure 123/56 L Pulse Oximetry 99 98 Oxygen Delivery Method Room Air 07/10/23 18:23 Pulse Rate 63 Respiratory Rate 18 Blood Pressure 102/59 L Pulse Oximetry 96 Oxygen Delivery Method Room Air <Christoph Link DO - Last Filed: 07/10/23 21:42> Orders Ordered: Discontinued Medications Clonazepam (Clonazepam 0.5 Mg Tablet) 1 mg PO NOW ONE Stop: 07/10/23 15:44 Last Admin: 07/10/23 15:54 Dose: 1 mg Documented By: BERNADINE Vital Signs Vital signs: Vital Signs - 8 hr 07/10/23 13:56 07/10/23 13:57 07/10/23 13:57 Pulse Rate 54 L Respiratory Rate Blood Pressure 123/56 L Pulse Oximetry 99 98 Oxygen Delivery Method Room Air 07/10/23 18:23 Pulse Rate 63 Respiratory Rate 18 Blood Pressure 102/59 L Pulse Oximetry 96 Oxygen Delivery Method Room Air MDM - Psych <Anamaria Manuel MD - Last Filed: 07/12/23 19:42> Lab Data 07/10/23 12:45 07/10/23 12:45 Labs: Lab Results 07/10/23 07/10/23 07/10/23 Range/Units 12:42 12:45 13:57 WBC 6.4 (4.5-11.0) X10^3/uL RBC 5.08 (4.5-5.9) X10^6/uL Hgb 15.0 (13.5-17.5) g/dL Hct 44.1 (41-53) % MCV 86.7 (80-100) fL MCH 29.4 (26-34) PG MCHC 33.9 (30-36) % RDW 13.7 (11.6-14.8) % Plt Count 221 (150-400) X10^3/uL Neut % (Auto) 62.9 (50-75) % Lymph % (Auto) 26.7 (25-40) % Parker % (Auto) 8.6 (3-14) % Eos % (Auto) 1.3 L (2-4) % Baso % (Auto) 0.5 (0-2) % Neut # (Auto) 4000 (8989-9022) /uL Lymph # (Auto) 1700 (3379-9772) /uL Parker # (Auto) 600 (0-900) /uL Eos # (Auto) 100 (0-450) /uL Baso # (Auto) 0 (0-100) /uL Sodium 134 L (137-145) mmol/L Potassium 4.2 (3.4-5.1) mmol/L Chloride 99 (98-107) mmol/L Carbon Dioxide 27 (22-32) mmol/L BUN 15 (9-20) mg/dL Creatinine 0.80 (0.66-1.25) mg/dL Estimated GFR > 60 (>60) mL/min BUN/Creatinine Ratio 18.8 (6-22) Glucose 101 H (70-100) mg/dL Calcium 9.6 (8.4-10.2) mg/dL Total Bilirubin 0.8 (0.2-1.3) mg/dL AST 29 (17-59) IU/L ALT 37 (<50) IU/L Alkaline Phosphatase 36 L (38-126) U/L Total Protein 7.9 (6.3-8.2) g/dL Albumin 4.6 (3.5-5.0) g/dL Globulin 3.3 (1.7-4.1) g/dL Albumin/Globulin Ratio 1.4 (1.0-2.8) TSH 1.19 (0.47-4.68) uIU/mL Free T4 1.15 (0.78-2.19) ng/dL Salicylates < 1.0 (<20) mg/dL U Opiates 300ng/mL cut Negative (Negative) Ur Oxycodone Screen Negative (Negative) Urine Methadone Screen Negative (Negative) Acetaminophen < 10 (10-30) ug/mL Ur Barbiturates Screen Negative (Negative) U Tricyclic Antidepress Negative (Negative) Ur Phencyclidine Scrn Negative (Negative) Ur Amphetamines Screen Negative (Negative) U Methamphetamines Scrn Negative (Negative) Ur MDMA Scrn (Ecstasy) Negative (Negative) U Benzodiazepines Scrn Negative (Negative) Urine Cocaine Screen Negative (Negative) U Marijuana (THC) Screen Positive H (Negative) Ethyl Alcohol < 10 ( - 10) mg/dL SARS-CoV-2 (PCR) Negative (Negative) Urine Dip Bedside Urine Glucose Negative Bedside Urine Bilirubin - Negative Bedside Urine Ketone - Negative Urine Specific [place] 1.010 Bedside Urine Occult Blood - Negative Bedside Urine pH 7.5 Bedside Urine Protein - Negative Bedside Urine Urobilinogen - Negative Bedside Urine Nitrite - Negative Bedside Urine Leukocytes +/- 15 Esterase MDM Narrative Medical decision making narrative: CC: Suicidal ideation, depression Complicating co-morbidities: Ongoing depression, recently quit his job, significant financial stressors, upsetting social interactions with his parents over the weekend Data collected from: patient Differential considered: Depression, suicidal ideation Exam documented above, pertinent findings include: Deep circles under his eyes, obviously emotionally upset. Will intermittently agree to contract for safety. Flat affect but fairly good insight into how his poor decisions have led to his current situation. Physical exam is benign otherwise Lab Test results independently reviewed as above. Pertinent findings: CBC is unremarkable Chemistries are reassuring TSH is within normal limits Urine tox is positive only for marijuana Alcohol level is undetectable He is COVID negative Treatments: 1mg of clonazepam for anxiety Re-evaluations: After our initial discussion patient was not sure he wanted to stay. [place] that he could get a ride home with a friend in the friend would be willing to make sure that the gun was not available to him and was out of the house. green chain worker has re-evaluated him and he is willing to consider waiting until we hear back from the [facility] to see if that is might be available for depression with his suicidal ideation and means to follow-through available to him. 6pm awaiting inpatient psychiatrist at the [facility] to review paperwork to see if transfer will be accepted and arranged Discussion: 38-year-old gentleman with a history of depression and suicide ideation with multiple psychosocial stressors and life choices spiraling down to the point were he was considering using the gurney has available to him at home to kill himself or to jump off a bridge. Presents to the emergency department and is willing to consider help. Has been admitted to the [facility]. Does have an outpatient counselor and is next counseling appointment is scheduled in 2 days. Sounds like he is only intermittently been taking his duloxetine. He is not truly able to contract for safety but states that he believes he has friends that are willing to take possession of his gun for the time being. [facility] this gentleman in transfer for his suicidal ideation <Christoph Link DO - Last Filed: 07/10/23 21:42> Lab Data Labs: Lab Results 07/10/23 07/10/23 07/10/23 Range/Units 12:42 12:45 13:57 WBC 6.4 (4.5-11.0) X10^3/uL RBC 5.08 (4.5-5.9) X10^6/uL Hgb 15.0 (13.5-17.5) g/dL Hct 44.1 (41-53) % MCV 86.7 (80-100) fL MCH 29.4 (26-34) PG MCHC 33.9 (30-36) % RDW 13.7 (11.6-14.8) % Plt Count 221 (150-400) X10^3/uL Neut % (Auto) 62.9 (50-75) % Lymph % (Auto) 26.7 (25-40) % Parker % (Auto) 8.6 (3-14) % Eos % (Auto) 1.3 L (2-4) % Baso % (Auto) 0.5 (0-2) % Neut # (Auto) 4000 (4456-7690) /uL Lymph # (Auto) 1700 (0013-6705) /uL Parker # (Auto) 600 (0-900) /uL Eos # (Auto) 100 (0-450) /uL Baso # (Auto) 0 (0-100) /uL Sodium 134 L (137-145) mmol/L Potassium 4.2 (3.4-5.1) mmol/L Chloride 99 (98-107) mmol/L Carbon Dioxide 27 (22-32) mmol/L BUN 15 (9-20) mg/dL Creatinine 0.80 (0.66-1.25) mg/dL Estimated GFR > 60 (>60) mL/min BUN/Creatinine Ratio 18.8 (6-22) Glucose 101 H (70-100) mg/dL Calcium 9.6 (8.4-10.2) mg/dL Total Bilirubin 0.8 (0.2-1.3) mg/dL AST 29 (17-59) IU/L ALT 37 (<50) IU/L Alkaline Phosphatase 36 L (38-126) U/L Total Protein 7.9 (6.3-8.2) g/dL Albumin 4.6 (3.5-5.0) g/dL Globulin 3.3 (1.7-4.1) g/dL Albumin/Globulin Ratio 1.4 (1.0-2.8) TSH 1.19 (0.47-4.68) uIU/mL Free T4 1.15 (0.78-2.19) ng/dL Salicylates < 1.0 (<20) mg/dL U Opiates 300ng/mL cut Negative (Negative) Ur Oxycodone Screen Negative (Negative) Urine Methadone Screen Negative (Negative) Acetaminophen < 10 (10-30) ug/mL Ur Barbiturates Screen Negative (Negative) U Tricyclic Antidepress Negative (Negative) Ur Phencyclidine Scrn Negative (Negative) Ur Amphetamines Screen Negative (Negative) U Methamphetamines Scrn Negative (Negative) Ur MDMA Scrn (Ecstasy) Negative (Negative) U Benzodiazepines Scrn Negative (Negative) Urine Cocaine Screen Negative (Negative) U Marijuana (THC) Screen Positive H (Negative) Ethyl Alcohol < 10 ( - 10) mg/dL SARS-CoV-2 (PCR) Negative (Negative) Urine Dip Bedside Urine Glucose Negative Bedside Urine Bilirubin - Negative Bedside Urine Ketone - Negative Urine Specific [place] 1.010 Bedside Urine Occult Blood - Negative Bedside Urine pH 7.5 Bedside Urine Protein - Negative Bedside Urine Urobilinogen - Negative Bedside Urine Nitrite - Negative Bedside Urine Leukocytes +/- 15 Esterase MDM Narrative Medical decision making narrative: CC: Suicidal ideation, depression Complicating co-morbidities: Ongoing depression, recently quit his job, significant financial stressors, upsetting social interactions with his parents over the weekend Data collected from: patient Differential considered: Depression, suicidal ideation Exam documented above, pertinent findings include: Deep circles under his eyes, obviously emotionally upset. Will intermittently agree to contract for safety. Flat affect but fairly good insight into how his poor decisions have led to his current situation. Physical exam is benign otherwise Lab Test results independently reviewed as above. Pertinent findings: CBC is unremarkable Chemistries are reassuring TSH is within normal limits Urine tox is positive only for marijuana Alcohol level is undetectable He is COVID negative Treatments: 1mg of clonazepam for anxiety Re-evaluations: After our initial discussion patient was not sure he wanted to stay. [place] that he could get a ride home with a friend in the friend would be willing to make sure that the gun was not available to him and was out of the house. green chain worker has re-evaluated him and he is willing to consider waiting until [facility] to [facility] if that is might be available for depression with his suicidal ideation and means to follow-through available to him. 6pm awaiting inpatient psychiatrist at the [facility] to review paperwork to see if transfer will be accepted and arranged Discussion: 38-year-old gentleman with a history of depression and suicide ideation with multiple psychosocial stressors and life choices spiraling down to the point were he was considering using the gurney has available to him at home to kill himself or to jump off a bridge. Presents to the emergency department and is willing to consider help. Has been [facility] to the [facility]. Does have an outpatient counselor and is next counseling appointment is scheduled in 2 days. Sounds like he is only intermittently been taking his duloxetine. He is not truly able to contract for safety but states that he believes he has friends that are willing to take possession of his gun for the time being. Currently awaiting results from the [facility] to see if they are willing to accept this gentleman in transfer for his suicidal ideation Dr Link: Received turned over. Reviewed patient's history and physical exam. Patient is medically cleared. Patient has been accepted by [facility] [place]. The [facility] is arranging transport. Patient is stable for transport. Discharge Plan Departure Patient Disposition: Xfer Psychiatric Hosp Clinical Impression: Suicidal ideation Depression Qualifiers: Depression Type: unspecified Qualified Code(s): F32.A - Depression, unspecified Prescriptions: No Action duloxetine 60 mg Capsule,Delayed Release(Dr/Ec) 60 mg PO DAILY Patient Comments: states he has been taking it on and off Referrals: Miscellaneous,Doctor[facility] [Primary Care Provider] -
[2023-07-10] MEDS: clonazePAM 0.5 MG TABLET 1 MG PO (15:54)
[2023-07-10 18:23] VITALS: BP 102/59; PULSE 63; RESP 18; O2SAT 96
--- NOTE | 2023-07-10 19:06 | CM.SWNOTE ---
Health Care Attorney Note Cont. [facility] once [facility] is accepted. [facility] will make arrangements for transportation, and notify ED FACTORY LAY OUT ENGINEER once this is confirmed with ETA. No further SWING GRINDER needs identified at this time.
[2023-07-10 23:02] VITALS: BP 135/80; PULSE 68; RESP 16; O2SAT 99
== END 2023-07-10 23:06 ==
PROVIDERS: Emergency Medicine; Emergency Provider Emergency Medicine
DX: R45.851 Suicidal ideations (principal); F32.A Depression, unspecified; Z79.899 Other long term (current) drug therapy; Z20.822 Contact with and (suspected) exposure to COVID-19
CPT/HCPCS: 36415; 80053; 80305; 80320; 80329; 81003; 84439; 84443; 85025; 87635; 99283; 99284; C9803; G0480

== ENCOUNTER 2023-07-20 23:56 | Emergency (ER) | payer OTHER, SELFPAY ==
[2023-07-21 00:05] VITALS: BP 125/77; PULSE 60; RESP 18; TEMP 36.6; O2SAT 98; BMI 25.0
--- NOTE | 2023-07-21 00:08 | ED_ITS ---
HPI - General Adult General Chief complaint: Recheck/Abnormal Lab/Rx Stated complaint: not feeling well Time Seen by Provider: 07/21/23 00:02 History of Present Illness HPI narrative: 38yoM with PMH anxiety and depression presents for possible medication withdrawal. Patient was recently hospitalized at the [facility] and started on gabapentin, duloxetine 90mg daily, and hydroxyzine 25mg TID PRN. Patient states that he became very frustrated with his care at the [facility] and his concern for possible medication side effects and left all of his medications at the [facility] in [place]. He states that he has been off of all medications for the last 4 days and feels generally unwell. [facility] who thinks that he may be withdrawing from his duloxetine. Patient is here today for refill of his duloxetine and hydroxyzine. He thinks that his reaction may have been the gabapentin and he is not interested in continuing gabapentin at this time. Denies suicidal or homicidal ideations, denies intent to harm self or others. Related Data Home Medications Medication Instructions Recorded Confirmed duloxetine 60 mg capsule,delayed 60 mg PO DAILY 07/10/23 07/10/23 release Previous Rx's Medication Instructions Recorded duloxetine 30 mg capsule,delayed 90 mg (3 x 30 mg) PO DAILY #90 caps 07/21/23 release hydroxyzine pamoate 25 mg capsule 25 mg PO TID PRN nausea and 07/21/23 vomiting #30 caps Allergies Allergy/AdvReac Type Severity Reaction Status Date / Time shellfish derived Allergy Verified 07/10/23 14:11 Review of Systems Review of Systems Narrative: Negative except as noted above Patient History Medical History (Updated 07/21/23 @ 00:19 by Yesi Castillo MD) Suicidal ideation Depression Surgical History No pertinent past surgical history Social History Smoking Status: Current every day smoker alcohol intake: former substance use type: marijuana Smoking Status: Current every day smoker alcohol intake frequency: other Substance Use Type: marijuana Exam Initial Vital Signs Initial Vital Signs: Vital Signs Temperature 98 F 07/21/23 00:05 Pulse Rate 60 07/21/23 00:05 Respiratory Rate 18 07/21/23 00:05 Blood Pressure 125/77 07/21/23 00:05 Pulse Oximetry 98 07/21/23 00:05 Oxygen Delivery Method Room Air 07/21/23 00:05 Const: Awake, alert, no acute distress, nontoxic appearing Eyes: PERRL, EOMI, conjunctiva normal ENT: Atraumatic, dentition normal, mucous membranes moist Cardiac: regular rate, regular rhythm RESP: unlabored, clear bilaterally, no wheezing GI: Atraumatic, soft, nontender, nondistended, no rebound, no guarding MSK: Atraumatic, full range of motion, pulses equal Skin: Warm, Dry, intact, no rashes Neuro: AO x3, CN II-XII grossly intact, moves all extremities Psych: affect normal, mood normal, not suicidal, not homicidal Course Course Course Narrative: Patient presenting for a refill of his medications so that he may continue his therapy. He describes electric shock sensations that are likely withdrawal from duloxetine. Dose of duloxetine provided in the emergency department, refill sent to pharmacy of choice. Patient states he does not want to continue taking gabapentin and this was not refilled at this time. He was encouraged to continue follow up with his psychiatrist. Orders Ordered: Discontinued Medications Duloxetine HCl (Duloxetine 30 Mg Capsule) 90 mg PO NOW ONE Stop: 07/21/23 00:19 Vital Signs Vital signs: Vital Signs - 8 hr 07/21/23 00:05 Temperature 98 F Pulse Rate 60 Respiratory Rate 18 Blood Pressure 125/77 Pulse Oximetry 98 Oxygen Delivery Method Room Air Medical Decision Making Differential Diagnosis Differential Diagnosis: Medication refill, depression, anxiety Discharge Plan Departure Patient Disposition: Home Clinical Impression: Encounter for medication refill Instructions: DI for Anxiety -- Adult Prescriptions: New duloxetine 30 mg capsule,delayed release(DR/EC) 90 mg PO DAILY Qty: 90 0RF hydroxyzine pamoate 25 mg capsule 25 mg PO TID PRN (Reason: nausea and vomiting) Qty: 30 0RF No Action duloxetine 60 mg Capsule,Delayed Release(Dr/Ec) 60 mg PO DAILY Patient Comments: states he has been taking it on and off Referrals: Miscellaneous,Doctor, MD [Primary Care Provider] - Stand Alone Forms: Patient Portal/API
[2023-07-21] MEDS: DULOXETINE 30 MG CAPSULE 90 MG PO (00:32)
== END 2023-07-21 00:33 | disposition home or self-care (01) ==
PROVIDERS: Emergency Provider Emergency Medicine
DX: Z76.0 Encounter for issue of repeat prescription (principal)
CPT/HCPCS: 99283

== ENCOUNTER 2023-12-15 09:46 | Emergency (ER) | payer OTHER, SELFPAY ==
[2023-12-15 09:40] VITALS: BP 140/74; PULSE 64; RESP 14; TEMP 36.3; O2SAT 97; BMI 26.4
[2023-12-15 10:07] LABS: Add Manual Diff / Slide Review NO; Basophils Absolute Auto 0 /uL (0-100); Basophils Percent Auto 0.7 % (0-2); Eosinophils Absolute Auto 100 /uL (0-450); Eosinophils Percent Auto 1.9 % (2-4); Hematocrit 41.8 % (41-53); Hemoglobin 14.4 g/dL (13.5-17.5); Lymphocytes Absolute Auto 1900 /uL (1100-4500); Lymphocytes Percent Auto 34.4 % (25-40); Mean Corpuscular HGB Conc 34.6 % (30-36); Mean Corpuscular Volume 86.7 fL (80-100); Monocytes Absolute Auto 600 /uL (0-900); Monocytes Percent Auto 11.3 % (3-14); Neutrophils Absolute Auto 2900 /uL (1500-7000); Neutrophils Percent Auto 51.7 % (50-75); Platelet Count 210 X10^3/uL (150-400); Red Blood Cell Count 4.82 X10^6/uL (4.5-5.9); Red Cell Distribution Width 13.6 % (11.6-14.8); White Blood Cell Count 5.7 X10^3/uL (4.5-11.0)
[2023-12-15 10:20] LABS: Acetaminophen < 10 ug/mL (10-30); Alanine Aminotransferase 31 IU/L (<50); Albumin 4.9 g/dL (3.5-5.0); Albumin Globulin Ratio 1.7 (1.0-2.8); Alkaline Phosphatase 45 U/L (38-126); Aspartate Aminotransferase 29 IU/L (17-59); BUN Creatinine Ratio 13.1 (6-22); Blood Urea Nitrogen 13 mg/dL (9-20); Calcium 9.3 mg/dL (8.4-10.2); Carbon Dioxide 26 mmol/L (22-32); Chloride 105 mmol/L (98-107); Estimated Glomerular Filt Rate > 60 mL/min (>60); Ethanol (ETOH) < 10 mg/dL; Globulin 2.9 g/dL (1.7-4.1); Glucose 97 mg/dL (70-100); HEMOLYSIS < 15 (0-50); Potassium 4.2 mmol/L (3.4-5.1); Salicylate < 1.0 mg/dL (<20); Sodium 137 mmol/L (137-145); Total Protein 7.8 g/dL (6.3-8.2)
[2023-12-15 10:20] LABS: UR Morphine/Opiate cutoff 300 Negative (Negative); Ur Creatinine Normal (Normal); Ur Specific Gravity Normal (Normal); Urine Amphetamines Negative (Negative); Urine Barbiturates Negative (Negative); Urine Benzodiazepines Negative (Negative); Urine Cocaine Negative (Negative); Urine MDMA Negative (Negative); Urine Methadone Negative (Negative); Urine Methamphetamines Negative (Negative); Urine Oxycodone Negative (Negative); Urine Phencyclidine Negative (Negative); Urine Tetrahydrocannabinol Positive (Negative); Urine Tricyclic Antidepressant Negative (Negative); Urine pH Normal (Normal)
[2023-12-15 10:24] LABS: COVID19 -Nasal RAPID Negative (Negative)
[2023-12-15 10:33] LABS: Ictotest Urine Negative (Negative)
[2023-12-15 10:54] LABS: Bacteria Urine Few (2-10); Culture Indicated Urine Cult Not Indicated; RBC Urine 0-1/HPF (0-5/HPF); Squamous Epithelial Cell Urine >30 /HPF (0-5/HPF); Triple Phosphate Crystal Urine Occasional; Urine Volume 10mL (spun); WBC Urine 5-10/HPF (0-5/HPF)
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
[2023-12-15 11:31] LABS: Free T4, Direct Thyroxine 1.12 ng/dL (0.78-2.19); Thyroid Stimulating Hormone 0.865 uIU/mL (0.47-4.68)
[2023-12-15 12:04] VITALS: BP 133/89; PULSE 67; O2SAT 98
--- NOTE | 2023-12-15 12:41 | CM.SWNOTE ---
ED ENERGY ECONOMIST Note: Pt is a 38yo male who presented to the ED due to psychiatric symptoms and suicidal ideation. ENERGY ECONOMIST was consulted due to pt's initial endorsement of voluntary inpatient treatment. Before this ENERGY ECONOMIST was able to enter room for assessment, pt inquired about a Registration Specialist. Pt was expecting for ENERGY ECONOMIST to enter room sooner than this ENERGY ECONOMIST was able to enter and begin assessment. ENERGY ECONOMIST entered room and introduced self and role. Pt was found standing at edge of bed and was agitated, endorsed wanting to leave. Pt explained he only has [facility] and you guys can't help me anyway. Pt explained he wanted to go to [facility] but that is a complete waste of my time now. I don't need help from anyone. ENERGY ECONOMIST confirmed that pt was discussing outpatient mental health assistance, pt still declined referrals at this time. ENERGY ECONOMIST offered to set up a [facility] crisis call for pt tomorrow, 12/15 and pt declined. ENERGY ECONOMIST offered to bring crisis contact resource for pt, RN had it available when signing discharge summary. Pt changed out of paper scrubs, took back belongings and took lunch to-go when he discharged. MADI Fernandez
== END 2023-12-15 12:04 | disposition home or self-care (01) ==
PROVIDERS: Emergency Provider Emergency Medicine
DX: R45.851 Suicidal ideations (principal); Z20.822 Contact with and (suspected) exposure to COVID-19
CPT/HCPCS: 80053; 80305; 80320; 80329; 81003; 81015; 84439; 84443; 85025; 87635; 99284; G0480